=== PATIENT | female | born 1955 | race Caucasian/White ===

== ENCOUNTER 2022-11-06 11:53 | Outpatient (REF) | payer MEDICARE, SELFPAY ==
[2022-11-06 13:14] LABS: MANUAL DIFF FLAG NO
[2022-11-06 13:27] LABS: Basophils Absolute Auto 0.1 X10*3/uL (0.0-0.2); Basophils Percent Auto 0.6 % (0-2); Eosinophils Absolute Auto 0.3 X10*3/uL (0.0-0.4); Eosinophils Percent Auto 3.1 % (0-4); Hematocrit 36.7 % (37.0-47.0); Imm Gran Abs Auto 0.04 X10*3/uL (0.00-0.03); Imm Gran Pct Auto 0.5 % (0.0-0.4); Lymphocytes Absolute Auto 2.3 X10*3/uL (1.2-4.9); Lymphocytes Percent Auto 27.5 % (20-40); Mean Corpuscular HGB Conc 32.7 g/dl (31.0-35.0); Mean Corpuscular Hemoglobin 30.9 pg (27.0-33.0); Mean Corpuscular Volume 94.6 fL (80.0-98.0); Mean Platelet Volume 11.1 fL (9.4-12.3); Monocytes Absolute Auto 0.4 X10*3/uL (0.1-1.2); Monocytes Percent Auto 5.3 % (2-11); Neutrophils Absolute Auto 5.3 x10*3/uL (2.0-8.3); Platelet Count 206 X10*3/uL (160-400); Red Blood Count 3.88 X10*6/uL (4.20-5.50); Red Cell Distribution Width 13.5 % (11.0-16.0); White Blood Count 8.4 X10*3/uL (4.8-10.8)
[2022-11-06 14:02] LABS: Anion Gap 14 (12-20); Blood Urea Nitrogen 20 mg/dL (9-16); Calcium 9.3 mg/dL (8.4-10.2); Carbon Dioxide 27 mmol/L (22-29); Chloride 105 mmol/L (96-108); Estimated Glomerular Filt Rate 53; Glucose Random 187 mg/dL (60-115); Potassium 2.9 mmol/L (3.3-5.1); Sodium 143 mmol/L (135-145); Uric Acid 8.9 mg/dL (2.4-5.7)
[2022-11-06 14:17] LABS: TSH reflex Free T4 1.52 uIU/mL (0.32-4.0)
[2022-11-06 14:40] LABS: Rheumatoid Factor < 13.0 IU/mL (<15.0)
== END 2022-11-06 11:54 | disposition home or self-care (01) ==
LOC: HO.HHCL 11:53
PROVIDERS: Visit Provider Internal Medicine
DX: E03.9 Hypothyroidism, unspecified (principal); I10 Essential (primary) hypertension; M79.641 Pain in right hand; M79.672 Pain in left foot
CPT/HCPCS: 36415; 80048; 84443; 84550; 85025; 86431

== ENCOUNTER 2022-11-08 11:23 | Outpatient (AMB) | payer MEDICARE, MEDICAID, SELFPAY ==
--- NOTE | 2022-11-08 11:29 | MHC.OFFWIV ---
Intake Vital Signs 11/08/22 11:32 Weight 79.832 kg BP 118/78 Blood Pressure Location Rt brachial Position Sitting Pulse 78 Pulse Source Pulse Oximeter Temp 98.4 F Temp Source Oral Pulse Oximetry (%) 95 Oxygen Delivery Method Room Air Intake Visit Reasons: EST/low potassium? Intake Note: PT states she's having low potassium. Blood test was done on that revealed the low potassium. Allergies amlodipine Allergy (Unknown, Verified 06/03/18 00:00) hydrochlorothiazide Allergy (Unknown, Verified 06/03/18 00:00) verapamil Allergy (Unknown, Verified 06/03/18 00:00) No Known Allergies Allergy (Unverified 11/17/19 14:46) HPI HPI Comments History of Present Illness Details 1144 67-year-old female presents for a repeat potassium check, patient had labs done on 11/06/2022 her potassium was 2.9, she was prescribed 20 medical equivalents of potassium chloride by mouth twice a day been taking them since then, PCP advised for repeat labs today. Patient denies any medical complaints at this time. No chest pain or shortness of breath. Physical exam benign. Plan repeat potassium will call patient with result. She still has a few doses of Klor-Con left Educated patient on diagnosis and treatment plan, answered all question, patient verbalizes understanding. At this time patient will be discharged home, advised to return with new or worsening symptoms. Educated on worrisome signs and symptoms and when to return. At this time I feel comfortable discharge home. Review of Systems Const Details: Constitutional : No Weight loss, No Fever, No Chills, No Fatigue, No Malaise ENT/Mouth : No sore throat, No Rhinorrhea Eyes: No Eye Pain, No Swelling, No Redness Cardiovascular : No Chest Pain, No SOB, No Dyspnea on Exertion, No Orthopnea, No Edema, No Palpitations Respiratory : No Cough, No Sputum, No Wheezing Gastrointestinal : No Nausea, No Vomiting, No Diarrhea, No Constipation, No abdominal Pain, No Hematochezia, No Melena Genitourinary : No Dysuria, No Urinary Frequency, No Hematuria, Musculoskeletal : No joint pain, No Myalgias, No Joint Swelling Skin : No Skin Lesions, No rash Neuro : No Weakness, No Numbness, No Dizziness, No Headache Psych : No Anxiety/Panic, No Depression All other systems reviewed and are negative All systems reviewed & are unremarkable except as noted in HPI and below Physical Exam Vital Signs: Last Vital Signs Temp 98.4 F 11/08/22 11:32 Pulse 78 11/08/22 11:32 BP 118/78 11/08/22 11:32 Pulse Ox 95 11/08/22 11:32 Oxygen Delivery Method Room Air 11/08/22 11:32 vss Appearance: Alert.? Oriented X3.? No acute distress.? Head: Normocephalic, atraumatic, no step-offs or deformities Eyes: Pupils equal, round and reactive to light.? CVS: Normal heart rate and rhythm.? Pulses normal.? Respiratory: No respiratory distress.? Breath sounds normal.? Skin: Skin warm and dry.? Normal skin color.? Normal skin turgor.? Extremities: No lower extremity edema.? No calf ttp. 5/5 strength to bilateral upper and lower extremities Neuro: Oriented X 3.? No motor deficit.? No sensory deficit. CN 2-12 intact Assessment & Plan Assessment & Plan (1) Hypokalemia: Code(s): E87.6 - Hypokalemia Plan Take your medications as prescribed. If you were prescribed antibiotics today, it is important that you take your medication to their entirety, do not skip any doses, do not finish them early. Follow-up with your primary care provider this week. Return to the emergency department with new or worsening symptoms. Such as fevers, chills, chest pain, shortness of breath, nausea, vomiting, dizziness, headache, vision changes, lethargy In case of emergency call 911 Orders: Orders Complete Blood Count Auto Diff Today E87.6 - Hypokalemia Comprehensive Met. Panel Today E87.6 - Hypokalemia Coding Level of Care Code Est Pt Level 3 (07989) Diagnoses Hypokalemia E87.6
[2022-11-08 11:32] VITALS: BP 118/78; PULSE 78; TEMP 36.9; O2SAT 95
== END 2022-11-08 12:09 | disposition home or self-care (01) ==
PROVIDERS: PCP Internal Medicine; Visit Provider Physician Assistant
DX: E87.6 Hypokalemia (principal)
CPT/HCPCS: 99213

== ENCOUNTER 2022-11-08 11:46 | Outpatient (REF) | payer MEDICARE, MEDICAID, SELFPAY ==
[2022-11-08 13:24] LABS: MANUAL DIFF FLAG NO
[2022-11-08 13:33] LABS: Basophils Percent Auto 0.4 % (0-2); Eosinophils Absolute Auto 0.3 X10*3/uL (0.0-0.4); Eosinophils Percent Auto 3.5 % (0-4); Hematocrit 37.1 % (37.0-47.0); Hemoglobin 12.1 g/dl (12.0-16.0); Imm Gran Abs Auto 0.02 X10*3/uL (0.00-0.03); Imm Gran Pct Auto 0.3 % (0.0-0.4); Lymphocytes Absolute Auto 2.5 X10*3/uL (1.2-4.9); Lymphocytes Percent Auto 31.8 % (20-40); Mean Corpuscular HGB Conc 32.6 g/dl (31.0-35.0); Mean Corpuscular Volume 95.1 fL (80.0-98.0); Mean Platelet Volume 11.2 fL (9.4-12.3); Monocytes Absolute Auto 0.4 X10*3/uL (0.1-1.2); Monocytes Percent Auto 5.5 % (2-11); Neutrophils Absolute Auto 4.6 x10*3/uL (2.0-8.3); Neutrophils Percent Auto 58.5 % (45-73); Platelet Count 209 X10*3/uL (160-400); Red Cell Distribution Width 13.6 % (11.0-16.0); White Blood Count 7.8 X10*3/uL (4.8-10.8)
[2022-11-08 13:42] LABS: Alanine Aminotransferase 42 U/L (0-31); Alkaline Phosphatase 177 U/L (39-117); Anion Gap 14 (12-20); Aspartate Amino Transferase 30 U/L (5-31); Bilirubin Total 0.3 mg/dL (0.0-1.0); Blood Urea Nitrogen 22 mg/dL (9-16); Calcium 9.4 mg/dL (8.4-10.2); Carbon Dioxide 26 mmol/L (22-29); Chloride 105 mmol/L (96-108); Estimated Glomerular Filt Rate 42; Glucose Random 146 mg/dL (60-115); Potassium 3.3 mmol/L (3.3-5.1); Sodium 142 mmol/L (135-145); Total Protein 7.5 g/dL (6.5-8.0)
== END 2022-11-08 11:47 | disposition home or self-care (01) ==
LOC: HO.HMGCLDS 11:46
PROVIDERS: PCP Internal Medicine; Visit Provider Physician Assistant
DX: E87.6 Hypokalemia (principal)
CPT/HCPCS: 36415; 80053; 85025

== ENCOUNTER 2022-11-10 13:39 | Outpatient (REF) | payer MEDICARE, MEDICAID, SELFPAY ==
--- NOTE | ~2022-11-10 | XR_ITS ---
EXAMINATION: XR HAND, RIGHT CLINICAL INFORMATION: Right hand pain. COMPARISON: 12/22/2006. TECHNIQUE: PA, lateral, and oblique views of the right hand. FINDINGS: Multiple screws are again seen within the right ring finger proximal phalanx. Hardware appears intact. No acute fractures are identified. [id number]-[id number] multifocal osteoarthritis is evident in the interphalangeal joints, characterized by joint space narrowing and marginal osteophytes. Additional mild osteoarthritis is evident in the 1st CMC, triscaphe, and 1st MCP joints. There is chondrocalcinosis at the TFCC. No erosions. Soft tissues are unremarkable aside from calcific atherosclerosis in the distal radius. XR/XR hand RT min 3V IMPRESSION: Nwll-[id number]-[id number] multifocal osteoarthritis in the right hand, most notably in the interphalangeal joints. No acute osseous findings.
--- NOTE | ~2022-11-10 | XR_ITS ---
EXAMINATION: XR FOOT, LEFT CLINICAL INFORMATION: Left foot pain. COMPARISON: None available. TECHNIQUE: AP, lateral, and oblique views of the left foot. FINDINGS: There is nonuniform joint space narrowing in the interphalangeal joints with marginal osteophytes, most pronounced in the distal interphalangeal joints of the 2nd and 3rd toes. Metatarsophalangeal joints and midfoot joints appear well preserved. Small enthesopathic spurs are present at the Achilles tendon insertion and plantar fascial origin on the calcaneus. No erosions. No fractures. Calcific atherosclerosis at the ankle and foot. Mild generalized soft tissue swelling. XR/XR foot LT min 3V IMPRESSION: Sllw-ti-[id number] osteoarthritis in the interphalangeal joints, most pronounced in the 2nd and 3rd toes. Mild soft tissue swelling. No acute osseous findings.
== END 2022-11-10 13:40 | disposition home or self-care (01) ==
LOC: HO.HHCX 13:39
PROVIDERS: Visit Provider Internal Medicine
DX: M79.672 Pain in left foot (principal); M79.641 Pain in right hand
CPT/HCPCS: 73130; 73630

== ENCOUNTER 2023-05-26 12:15 | Outpatient (REF) | payer MEDICARE, MEDICAID, SELFPAY ==
[2023-05-26 13:57] LABS: Anion Gap 14 (12-20); Blood Urea Nitrogen 20 mg/dL (9-16); Calcium 9.3 mg/dL (8.4-10.2); Carbon Dioxide 27 mmol/L (22-29); Chloride 106 mmol/L (96-108); Estimated Glomerular Filt Rate 55; Glucose Random 120 mg/dL (60-115); Potassium 3.3 mmol/L (3.3-5.1); Sodium 144 mmol/L (135-145)
== END 2023-05-26 12:16 | disposition home or self-care (01) ==
LOC: HO.HHCL 12:15
PROVIDERS: Visit Provider Internal Medicine
DX: I10 Essential (primary) hypertension (principal)
CPT/HCPCS: 36415; 80048

== ENCOUNTER 2023-07-14 15:22 | Outpatient (REF) | payer MEDICARE, MEDICAID, SELFPAY ==
[2023-07-14 18:48] LABS: Anion Gap 16 (12-20); Blood Urea Nitrogen 21 mg/dL (9-16); Calcium 9.2 mg/dL (8.4-10.2); Carbon Dioxide 22 mmol/L (22-29); Chloride 109 mmol/L (96-108); Estimated Glomerular Filt Rate 43; Glucose Random 158 mg/dL (60-115); Potassium 3.6 mmol/L (3.3-5.1); Sodium 143 mmol/L (135-145)
[2023-07-14 19:35] LABS: Magnesium 1.3 mg/dL (1.6-2.6)
== END 2023-07-14 15:23 | disposition home or self-care (01) ==
LOC: HO.HHCL 15:22
PROVIDERS: Visit Provider Internal Medicine Geriatric Medicine
DX: R42 Dizziness and giddiness (principal); E87.6 Hypokalemia; E83.42 Hypomagnesemia
CPT/HCPCS: 36415; 80048; 83735

== ENCOUNTER 2023-07-24 16:10 | Outpatient (REF) | payer MEDICARE, MEDICAID, SELFPAY ==
[2023-07-24 18:03] LABS: Magnesium 1.6 mg/dL (1.6-2.6)
== END 2023-07-24 16:11 | disposition home or self-care (01) ==
LOC: HO.LAB 16:10
PROVIDERS: PCP Internal Medicine; Visit Provider Internal Medicine Geriatric Medicine
DX: E83.42 Hypomagnesemia (principal)
CPT/HCPCS: 36415; 83735

== ENCOUNTER 2024-07-12 10:49 | Outpatient (REF) | payer OTHER, SELFPAY ==
[2024-07-12 11:28] LABS: MANUAL DIFF FLAG NO
[2024-07-12 11:36] LABS: Basophils Percent Auto 0.2 % (0-2); Eosinophils Percent Auto 0.3 % (0-4); Hematocrit 38.4 % (37.0-47.0); Hemoglobin 12.2 g/dl (12.0-16.0); Imm Gran Abs Auto 0.16 X10*3/uL (0.00-0.03); Imm Gran Pct Auto 1.5 % (0.0-0.4); Lymphocytes Absolute Auto 1.7 X10*3/uL (1.2-4.9); Lymphocytes Percent Auto 15.7 % (20-40); Mean Corpuscular HGB Conc 31.8 g/dl (31.0-35.0); Mean Corpuscular Hemoglobin 30.6 pg (27.0-33.0); Mean Corpuscular Volume 96.2 fL (80.0-98.0); Mean Platelet Volume 10.6 fL (9.4-12.3); Monocytes Absolute Auto 0.3 X10*3/uL (0.1-1.2); Monocytes Percent Auto 3.1 % (2-11); Neutrophils Absolute Auto 8.5 x10*3/uL (2.0-8.3); Neutrophils Percent Auto 79.2 % (45-73); Platelet Count 234 X10*3/uL (160-400); Red Blood Count 3.99 X10*6/uL (4.20-5.50); Red Cell Distribution Width 13.7 % (11.0-16.0); White Blood Count 10.8 X10*3/uL (4.8-10.8)
--- OUTSIDE RECORDS SUMMARY | 2024-07-12 12:14 | XMS_ITS | Encounter Summary ---
Author Organization [employer] Address [address] [facility] [address] [place] [address] Care Team Providers Care Fisher Eel Name Role Phone Jossue Bravo MD Primary Care Provide r Encounter Details Date Type Department Care Team ([facility] st Contact Info) Description 12/22/2023 Orders Only [facility] [address] [place] [address] Provider, MD Juan Social History Tobacco Use Types Packs/Day Years Used Date Smoking Tobacco: Never Smokeless Tobacco: Never Alcohol Use Standard Drinks/Week Comments Never 0 (1 standard drink = 0.6 oz pur e alcohol) Alcohol Answer Date Recorded Frequency of Alcohol Consumption Not on file 12/03/2023 Average Number of Drinks Not on file 024 Frequency of Binge Drinking Not on file 05/2023 Score 0 12/03/2023 Depression Answer Date Recorded Patient Health Questionnaire-9 Score 3 08/25/2023 Patient Health Questionnaire-9 Score 3 08/25/2023 Last PHQ-9: Questionnaire Data Not on file 0 08/25/2023 Housing Stability Answer Date Recorded What is your housing situation today? I have luis alberto abarca 12/15/[address] you li ve. Do you have problems with any of the following? None of the above 12/15/2022 Food Insecurity Answer Date Recorded Within the past 12 months, y ou worried that your food would run out before you got money to buy more: Sometimes True 2023 Within the past 12 months,th e food you bought just didn't last and you didn't have enough money to get more: Sometimes True 06/08/2023 Transportation Answer Date Recorded In the past 12 months, has l ack of transportation kept you from medical appts, meetings, work or from getting things needed for daily living? No 12/15/2022 Utilities Answer Date Recorded In the past 12 months, has t he electric, gas, oil or water company threatened to shut off services in your home? No 12/15/2022 Depression Answer Date Recorded Patient Health Questionnaire-2 Score 1 08/25/2023 Comments Unknown Sex and Gender Information Value Date Recorded Sex Assigned at Female 12/30/2021 10:14 AM EDT Legal Sex Female 10:14 AM EDT Gender Identity Female 12/30/2021 10:14 AM EDT Sexual Orientation Straight 12/30/2021 10 :14 AM EDT documented as of this encounter Plan of Treatment Upcoming Encounters Date Type Department Care Team (Late st Contact Info) Description 09/13/2024 1:00 PM EDT Office Visit [facility] [address] [place] [address] Jossue Bravo MD [address] [place] [address] documented as of this encounter Procedures Procedure Name Priority Date/Time Associated Diagnosis Comments MAMMOGRAPHY Routine 12/10/2023 10:29 AM EDT documented in this encounter Results * Hm Mammography (12/10/2023 10:29 AM EDT) Anatomical Region Laterality Modality Other Historical Provider HEALTH MAINTENANCE Final Result documented in this encounter Visit Diagnoses Not on filedocumented in this encounter Additional Health Concerns Assessment Noted Time PHQ-9 Depression Total Score: 3 08/25/19 24 11:39 AM EDT documented as of this encounter Care Teams Fisher Eel Relationship Specialty Start Date End Date Jossue Bravo MD [address] [place] [address] PCP - General Internal Medicine 07/07/16 [facility] 04/10/20 documented as of this encounter
--- OUTSIDE RECORDS SUMMARY | 2024-07-12 12:14 | XMS_ITS | Encounter Summary ---
Author Organization [employer] Address [address] [place] [address] [address] [place] [address] Care Team Providers Care Belt Lacer Name Role Phone Jossue Bravo MD Primary Care Provide r Reason for Visit * Reason Comments Med Refill Encounter Details Date Type Department Care Team (Late Contact Info) Description 06/26/2022 Refill [facility] [address] [place] [address] Jossue Bravo MD [address] [place] [address] [phone] Low back pain, unspecified back pain laterality, unspecified chronicity, unspecified whether sciatica present Social History Tobacco Use Types Packs/Day Years Used Date Smoking Tobacco: Never Assessed Comments Unknown Sex and Gender Information Value Date Recorded Sex Assigned at Female 12/30/2021 10:14 AM EDT Legal Sex Female 10:14 AM EDT Gender Identity Female 12/30/2021 10:14 AM EDT Sexual Orientation Straight 12/30/2021 10 :14 AM EDT documented as of this encounter Plan of Treatment Upcoming Encounters Date Type Department Care Team ([facility] Contact Info) Description 09/13/2024 1:00 PM EDT Office Visit [facility] [address] [place] [phone] Jossue Bravo MD [address] [place] [address] [phone] documented as of this encounter Visit Diagnoses Diagnosis Low back pain, unspecified back pain laterality, unspecified chronicity, unspecified whether sciatica present documented in this encounter Care Teams Belt Lacer Relationship Specialty Start Date End Date Jossue Bravo MD [address] [place] [phone] PCP - General Internal Medicine 07/07/16 [facility] 04/10/20 documented as of this encounter
--- OUTSIDE RECORDS SUMMARY | 2024-07-12 12:14 | XMS_ITS | Encounter Summary ---
Author Organization [employer] Address [address] [facility] [address] [place] [address] Care Team Providers Care Athletic Coach Name Role Phone Jossue Bravo MD Primary Care Provide r Reason for Visit * Reason Comments Med Refill Encounter Details Date Type Department Care Team ([facility] st Contact Info) Description 12/29/2022 Refill [facility] [address] [place], [place] [phone] Jossue Bravo MD [address] [place], [place] [phone] Mixed hyperlipidemia Social History Tobacco Use Types Packs/Day Years Used Date Smoking Tobacco: Never Smokeless Tobacco: Never Depression Answer Date Recorded Patient Health Questionnaire-9 Score 0 08/05/2022 Housing Stability Answer Date Recorded What is your housing situation today? I have luis albertorenae abarca 12/15/[address] you li ve. Do you have problems with any of the following? None of the above 12/15/2022 Food Insecurity Answer Date Recorded Within the past 12 months, y ou worried that your food would run out before you got money to buy more: Never True 12/15/2022 Within the past 12 months,th e food you bought just didn't last and you didn't have enough money to get more: Never True Transportation Answer Date Recorded In the past [...] Answer Date Recorded Patient Health Questionnaire-2 Score 0 08/05/2022 Comments Unknown Sex and Gender Information Value [...] 1:00 PM EDT Office Visit [facility] [address] [place] [address] Jossue Bravo MD [address] [place] [address] documented as of this encounter Visit Diagnoses Diagnosis Mixed hyperlipidemia documented in this encounter Additional Health Concerns Assessment Noted Time PHQ-9 Depression Total Score: 0 08/06/19 23 9:30 AM EDT documented as of this encounter Care Teams Athletic Coach Relationship Specialty Start Date End Date Jsosue Bravo MD [address] [place] [address] PCP - General Internal Medicine 07/07/16 [facility] 04/10/20 documented as of this encounter
--- OUTSIDE RECORDS SUMMARY | 2024-07-12 12:14 | XMS_ITS | Clinical Summary ---
Author Organization [employer] Address [address] [place] [address] [address] [place] [address] Care Team Providers Care Orthopaedic Nurse Name Role Phone Jossue Bravo MD Primary Care Provide r Allergies Active Allergy Reactions Criticality Noted Date Comments Amlodipine Dizziness 04/02/2010 Hydrochlorothiazide-Triam terene 01/01/2023 Verapamil 04/02/2010 Other reaction(s): constipation Medications polyethylene glycol, PEG, 3350 (Miralax) 17 g packet take 1 packet by oral route every day mixed with 8 oz. water, juice, soda, coffee or tea as needed for Constipation 30 packet 1 023 Active albuterol (2.5 MG/3ML) 0.083% nebulizer solution INHALE THE CONTENT OF 1 VIAL (3mls) VIA NEBULIZER EVERY 4 TO 6 HOURS NEEDED FOR SHORTNESS OF BREATH OR FOR WHEEZING 023 Active albuterol (Ventolin HFA) 108 (90 Base) MCG/ACT inhalerIndication s:Heartburn INHALE 2 PUFF BY MOUTH EVERY 4 TO 6 HOURS NEEDED 18 g 023 Active Blood Glucose Monitoring Suppl (FreeStyle Lite) deviceIndications :Type 2 diabetes mellitus without complication, without long-term current use of insulin ([facility]) Inject 1 each under the skin 2 times daily. 1 each 024 Active Advair HFA 230-21 MCG/ACT inhaler INHALE 2 PUFF BY MOUTH two (2) times a day. rinse mouth and throat after use 024 Active furosemide (Lasix) 20 MG tablet Take 20 mg by mouth Once per day. Active meclizine (Antivert) 25 MG tablet Take 1 tablet by mouth if needed in the morning, at noon, and at bedtime for dizziness. 024 Active Blood Pressure kit Use twice a day 1 kit Active docusate sodium (Colace) 100 MG capsuleIndication s:Constipation, unspecified constipation type TAKE 1 CAPSULE BY MOUTH two (2) times a day 180 capsule 3 024 Active OXcarbazepine (Trileptal) 600 MG tabletIndications :Partial symptomatic epilepsy with complex partial seizures, not intractable, without status epilepticus ([facility]) TAKE 1 TABLET BY MOUTH two (2) times a day 60 tablet 11 024 Active FreeStyle lancetsIndication s:Type 2 diabetes mellitus without complications ([facility]) USE TO TEST FINGER STICK BLOOD SUGAR two (2) times a day 100 each 3 024 Active losartan (Cozaar) 100 MG tablet Take 1 tablet (100 mg) by mouth Once per day. 90 tablet 3 024 Active montelukast (Singulair) 10 MG tablet TAKE 1 TABLET BY MOUTH EVERY EVENING 30 tablet 11 024 Active levothyroxine (Synthroid, Levoxyl) 112 MCG tablet TAKE 1 TABLET BY MOUTH ONCE DAILY 30 tablet 11 024 Active metFORMIN XR (Glucophage-XR) 500 MG 24 hr tabletIndications :Type 2 diabetes mellitus without complication, unspecified whether truck terminal manager insulin use ([facility]) TAKE 1 TABLET BY MOUTH EVERY EVENING WITH DINNER 90 tablet 3 024 Active omeprazole (PriLOSEC) [address] capsule TAKE 1 CAPSULE BY MOUTH ONCE DAILY IN THE MORNING. 90 capsule 3 024 Active nystatin (Nyamyc) 078419 UNIT/GM powderIndications :Tinea corporis APPLY TO THE AFFECTED AREA TOPICALLY two (2) times a day 60 g 6 025 Active Aspirin Low Dose 81 MG EC tablet TAKE 1 TABLET BY MOUTH ONCE DAILY 90 tablet 6 025 Active cholecalciferol VITAMIN D (Vitamin D-3) 50 MCG (2000 UT) tablet TAKE 1 TABLET BY MOUTH ONCE DAILY 90 tablet 2 025 Active Acetaminophen Extra Strength 500 MG tabletIndications :Low back pain, unspecified back pain laterality, unspecified chronicity, unspecified whether sciatica present TAKE 1 TABLET BY MOUTH EVERY 8 HOURS NEEDED 60 tablet 3 025 Active atorvastatin (Lipitor) 40 MG tabletIndications :Mixed hyperlipidemia TAKE 1 TABLET BY MOUTH ONCE DAILY AT BEDTIME 30 tablet 11 025 Active loratadine (Claritin) 10 MG tabletIndications :Seasonal allergies TAKE 1 TABLET BY MOUTH ONCE DAILY IN THE MORNING 90 tablet 1 025 Active Diclofenac Sodium 1 % gelIndications:Ch ronic right shoulder pain Apply to affected area bid prn 100 g 1 025 Active glucose blood (FREESTYLE LITE) test stripIndications: Type 2 diabetes mellitus without complications (CMS/HCC) USE TO TEST FINGER STICK BLOOD SUGAR two (2) times a day DIRECTED 50 strip 11 Active Alcohol Swabs (Alcohol Pads) 70 % pads USE TO TEST FINGER STICK BLOOD SUGAR two (2) times a day 100 each Active ipratropium (Atrovent) 0.02 % nebulizer solution Active predniSONE (Deltasone) 20 MG tablet 025 2024 Active Umeclidinium Cameron 62.5 MCG/ACT aerosol powder Inhale 0.0625 mg in the morning. 1 INHALATION EVERY DAY IN AM 023 2024 Discontinued(M ed list cleanup (will not trigger notification to Pharmacy)) benzonatate (Tessalon) 100 MG capsule TAKE 1 CAPSULE BY MOUTH EVERY 8 HOURS NEEDED FOR COUGH 023 2024 Discontinued(M ed list cleanup (will not trigger notification to Pharmacy)) omeprazole (PriLOSEC) [address] capsuleIndication s:Heartburn TAKE 1 CAPSULE BY MOUTH one time a day 30 capsule 6 023 2024 Discontinued(M ed list cleanup (will not trigger notification to Pharmacy)) potassium chloride CR (Klor-Con M10) 10 MEQ ER tablet Take 1 tablet (10 mEq) by mouth Once per day. Do not crush or chew. 30 tablet 024 2024 Alcohol Swabs (Alcohol Pads) 70 % pads USE TO TEST FINGER STICK BLOOD SUGAR two (2) times a day 100 each 3 024 2024 Discontinued glucose blood (FREESTYLE LITE) test stripIndications: Type 2 diabetes mellitus without complications ([facility]) USE TO TEST BLOOD SUGAR TWICE A DAY DIRECTED 50 strip 3 024 2024 Discontinued Diclofenac Sodium 1 % gelIndications:Ch ronic right shoulder pain Apply to affected area bid prn 50 g 1 025 2024 Discontinued(R eorder (will not trigger notification to Pharmacy)) Active Problems Problem Noted Date Diagnosed Date Primary hyperparathyroidism 04/14/2024 Assessment & Plan (04/14/2024 11:59 AM EST): Under the care of nephrology, last seen 07/2023 Stage 3b chronic kidney disease 04/14/2024 Assessment & Plan (04/14/2024 11:59 AM EST): Under the care of Nephrology Dr. Ta last seen 07/2023 Hospital discharge follow-up 03/08/2024 Assessment & Plan (07/12/2024 10:33 AM EDT): Pt here for a HDF Initially admitted to [facility] 07/06-/07/07/2024 After she presented with SOB, chest tightness, productive cough with green + yellow sputum. Patient found with hypokalemia (3.3 mmol/L) and tested positive for human rhinovirus/enterovirus. Patient treated with PO potassium and systemic steroids with bronchodilators for asthma exacerbation triggered by rhinovirus. Patient was discharged with 5 day course of steroids and instructions to continue chronic medications. Most recently she was readmitted to [facility] from 07/09/07/11/2024 for persistent shortness of breath or productive cough. It was discovered patient was not able to hot die picker prednisone prescription upon discharge from [facility] for completion of steroid course as outpatient. Asthma exacerbation was treated with a course of azithromycin, bronchodilators, and systemic steroids. Patient was discharged with instructions to take 2 more days of prednisone to total a 5 day course. Assessment & Plan (03/08/2024 9:46 AM EST): Pt here for a HDF Admitted to [facility] from: 12/14/2023-12/15/2023 Patient presented with neck and back pain secondary to a fall. Head CT revealed focus of hyperdensity along left lateral ventricle, which was possibly artifactual, however intraparenchymal hemorrhage could not be ruled out. Spinal x-ray without acute abnormality. Patient without focal neurological deficit. Patient administered oxycodone for pain with good affect. Trauma and neurosurgery teams consulted and recommended to hold aspirin until repeat outpatient head CT in 1 month. Follow up head CT on 01/2924: No findings concerning for hemorrhage. Patient reported that she had an appointment with the [facility] neurologist at the end of January, and they advised the patient to continue taking aspirin daily. 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 Mild soft tissue swelling. No acute osseous findings. Assessment & Plan (11/06/2022 11:36 AM EDT): New onset, 3 months no injury. Mainly over the 2nd MTC joint. No redness, no swelling Etiology ? OA ? 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 Mild soft tissue swelling. No acute osseous findings. Assessment & Plan (11/06/2022 11:37 AM EDT): New onset of pain over her left 2nd toe in the absence of any injury. 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 Overdue referred back, pt never went. Today she has been referred back. Pt promised to go this time Assessment & Plan (05/26/2023 11:50 AM EDT): Mammogram: NL 12/08/2022 Pap Smear: 07/02/2018 with Stephanie hartley Colonoscopy: [address] Villa HERNANDEZ/ Repeat 11/2016 showed Tubular adenomas, needed a repeat in 4 years 2020. Overdue referred back today Assessment & Plan (08/05/2022 9:41 AM EDT): Mammogram: NL 12/06/2021 Pap Smear: 07/02/2018 with Stephanie hartley Colonoscopy: [address] Villa HERNANDEZ/ Repeat 11/2016 showed Tubular adenomas, needed a repeat in 4 years 2020. Overdue referred back today Umbilical hernia without obstruction and without gangrene 08/05/2022 Assessment & Plan (08/05/2022 9:34 AM EDT): Pt here with c/o dicomfort on her previously diagnosed umbilical wall hernia. Pt interested in surgical correction would like to be referred for evaluation with a surgeon Plan: will refer to Dr Benjamin Of note most recent Abdominal CT 06/24/2020 showed: Impression: 1. ??Small fat-containing umbilical hernia similar. Mild constipation with possible stool impaction in the distal sigmoid colon and rectum. Gastroesophageal reflux disease without esophagi tis 08/05/2022 Overview (08/05/2022): EGD 01/17/2021 done at [facility] showed mild gastritis neg H pilory Chronic right shoulder pain 08/05/2022 Assessment & Plan (08/05/2022 12:22 PM EDT): Pt with previous c/o acute on chronic right shoulder pain. she has a Hx of an old displaced and impacted glenoid fracture with concomitant AC joint separation. Pt was referred to Orthopaedics for consideration of conservative measures She had a steroid injection with good results Today not complaining Chronic heart failure with preserved ejection fr action 07/17/2022 Assessment & Plan (04/14/2024 11:58 AM EST): Pt was seen by Construction Teacher 11/2023 They ordered a repeat ECHO . She is off lasix per account executive recomendation Assessment & Plan (12/03/2023 11:47 AM EDT): Pt was seen by Construction Teacher 11/2023 They ordered a repeat ECHO and recommended to stay on lasix 20 mg po daily Assessment & Plan (05/26/2023 11:53 AM EDT): Pt was seen by Construction Teacher Dr Nazario Assessment & Plan (08/05/2022 12:20 PM EDT): Pt was seen by Construction Teacher Dr Nazario 10/15/2021 Otosclerosis 06/22/2018 Moderate persistent asthma without complication 04/21/2017 Assessment & Plan (07/12/2024 10:27 AM EDT): Pt followed by [facility] Dr Aleksandr Mann, last seen 05/2024 Recommended she stayed on Advair, Montelukast and Albuterol PRN Assessment & Plan (08/05/2022 8:43 AM EDT): Pt followed by [facility] Dr Aleksandr Mann On Advair and Albuterol PRN Tubular adenoma of colon 01/15/2017 Assessment & Plan (08/05/2022 9:40 AM EDT): Last colonoscopy 2016, overdue for repeat will refer back today Essential hypertension 12/12/2014 Assessment & Plan (07/12/2024 10:34 AM EDT): Patient here for a f/u BP remains controlled She is on a regimen of: Losartan 100 mg po daily Orthotic Finish Grinding Technician recommended to discontinue lasix (prescribed by Cardiology) Of note She does not want to take Ca channel blockers due to side effects of constipation and dizziness and her Heart rate is borderline to tolerate a beta devora Plan: Continue current regimen patient advised to adhere to a low sodium diet, encouraged about medication compliance, counseled about weight loss. BMP Lab Results Component Value Date NA 143 07/14/2023 NA 144 05/26/2023 K 3.6 07/14/2023 K 3.3 05/26/2023 CL 109 (H) 07/14/2023 CL 106 05/26/2023 BUN 21 (H) 07/14/2023 BUN 20 (H) 05/26/2023 CREATININE 1.24 07/14/2023 CREATININE 1.00 05/26/2023 Normal, will repeat BMP Assessment & Plan (04/14/2024 11:55 AM EST): Patient here for a f/u BP remains controlled She is on a regimen of: Losartan 100 mg po daily Orthotic Finish Grinding Technician recommended to discontinue lasix (prescribed by Cardiology) Of note She does not want to take Ca channel blockers due to side effects of constipation and dizziness and her Heart rate is borderline to tolerate a beta devora Plan: Continue current regimen patient advised to adhere to a low sodium diet, encouraged about medication compliance, counseled about weight loss. BMP Lab Results Component Value Date NA 143 07/14/2023 NA 144 05/26/2023 K 3.6 07/14/2023 K 3.3 05/26/2023 CL 109 (H) 07/14/2023 CL 106 05/26/2023 BUN 21 (H) 07/14/2023 BUN 20 (H) 05/26/2023 CREATININE 1.24 07/14/2023 CREATININE 1.00 05/26/2023 normal Assessment & Plan (12/03/2023 11:48 AM EDT): Patient here for a f/u BP remains controlled She is on a regimen of: Losartan 100 mg po daily Orthotic Finish Grinding Technician recommended to discontinue lasix (prescribed by Cardiology) Of note She does not want to take Ca channel blockers due to side effects of constipation and dizziness and her Heart rate is borderline to tolerate a beta devora Plan: Continue current regimen patient advised to adhere to a low sodium diet, encouraged about medication compliance, counseled about weight loss. BMP 07/14/2023 normal Assessment & Plan (08/25/2023 11:39 AM EDT): Patient here for a f/u BP remains controlled She is on a regimen of: Losartan 100 mg po daily Orthotic Finish Grinding Technician recommended to discontinue lasix (prescribed by Cardiology) Of note She does not want to take Ca channel blockers due to side effects of constipation and dizziness and her Heart rate is borderline to tolerate a beta devora Plan: Continue current regimen patient advised to adhere to a low sodium diet, encouraged about medication compliance, counseled about weight loss. BMP 07/14/2023 normal Assessment & Plan (05/26/2023 11:54 AM EDT): Patient here for a f/u BP remains controlled She is on a regimen of: Losartan 100 mg po daily Orthotic Finish Grinding Technician recommended to discontinue lasix (prescribed by Cardiology) Of note She does not want to take Ca channel blockers due to side effects of constipation and dizziness and her Heart rate is borderline to tolerate a beta devora Plan: Continue current regimen patient advised to adhere to a low sodium diet, encouraged about medication compliance, counseled about weight loss. BMP 11/08/2022 normal will repeat Assessment & Plan (11/06/2022 11:29 AM EDT): Patient here for a f/u BP remains controlled She is on a regimen of: Losartan 100 mg po daily and Lasix 20 mg po daily Of note She does not want to take Ca channel blockers due to side effects of constipation and dizziness and her Heart rate is borderline to tolerate a beta devora Plan: Continue current regimen patient advised to adhere to a low sodium diet, encouraged about medication compliance, counseled about weight loss. BMP 08/05/2022 normal slightly low k 3.4 will repeat Assessment & Plan (08/05/2022 8:45 AM EDT): Patient here for a f/u BP remains controlled She is on a regimen of: Losartan 100 mg po daily and Lasix 20 mg po daily Of note She does not want to take Ca channel blockers due to side effects of constipation and dizziness and her Heart rate is borderline to tolerate a beta devora Plan: Continue current regimen patient advised to adhere to a low sodium diet, encouraged about medication compliance, counseled about weight loss. [facility] will order today Mixed hyperlipidemia 12/12/2014 Alkaline phosphatase raised 11/10/2011 Assessment & Plan (08/05/2022 12:25 PM EDT): Chronic, so far her work up included a negative antimitochondrial Ab, an abdominal US 10/27/2005 that showed no evidence of biliary obstruction. we had scheduled her to see a local community outreach worker 03/2009 but pt did not show up for the appointment, she then told me she was going to reschedule it for August 14 2009, and I do not believe this ever happened. Last time she came in we rescheduled it and she was seen at [facility] on 05/04/2012 GI and on recheck her Alk phos was 160and they did not recommend any further intervention. Bone scan to r/o Paget's disease of the bone. was done on 05/27/2012 and was negative for Paget's Last alk phos checked on 06/21/2020 was 203 Anxiety 11/10/2011 Depressive disorder 11/10/2011 Hypothyroidism 11/10/2011 Assessment & Plan (11/06/2022 11:29 AM EDT): Under the care of an Energy Derivatives Trader at [facility]. Last TSH and Free T4 were wnl. 12/13/2020 Previous visit I recommended to repeat, It was not done Will order again Currently on Synthroid 112 mcg po daily. Assessment & Plan (10/02/2022 12:52 PM EDT): Under the care of an Energy Derivatives Trader at [facility]. Last TSH and Free T4 were wnl. 12/13/2020 Previous visit I recommended to repeat, It was not done Will order again Currently on Synthroid 112 mcg po daily. Assessment & Plan (08/05/2022 12:15 PM EDT): Under the care of an Energy Derivatives Trader at [facility]. Last TSH and Free T4 were wnl. 12/13/2020 Will repeat Currently on Synthroid 112 mcg po daily. Obesity, morbid 11/10/2011 Assessment & Plan (04/14/2024 11:59 AM EST): Patient has been counseled and educated about diet and exercise. Personal goal of weight loss discussedPatient has comorbidity of: DM Dietary Recommendations: Fruits, vegetables, whole grains, protein foods, and fat-free or low-fat dairy products are healthy choices. Eat different types of protein foods in your diet. This can include seafood, lean meats, poultry, beans, peas, lentils, nuts, seeds, soy products, and eggs. Limit foods and beverages higher in added sugars, saturated fat, and sodium. Exercise Recommendations: At least 150 minutes of moderate-intensity physical activity per week, or an equivalent combination of moderate- and vigorous-intensity activity Obstructive sleep apnea syndrome 11/10/2011 Assessment & Plan (08/05/2022 12:23 PM EDT): Pt using her Cpap machine at home with good results. 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 Last seen on 11/16/2017 On Oxcarbazepine 600mg po BID Now under the care of [facility] neurology last seen 08/2023 they recommended Oxcarbazepine levels and [address] of brain 10/2022 showed post op changes, no acute findings MRI of Brain 06/04/2023 FINDINGS: The midline sagittal structures including the craniovertebral junction appear within normal limits. No diffusion abnormality. No evidence of acute infarct. There is mild cortical volume loss. Again noted is encephalomalacia in the left temporal lobe with associated gliosis. There is evidence of prior left pterional craniotomy. Small region of gliosis and encephalomalacia is again noted in the left frontal vertex. There is minimal stable periventricular and subcortical small vessel ischemic white matter changes in the bilateral cerebral hemispheres. Ventricles are normal in size The mastoid air cells and paranasal sinuses appear clear. Survey of the orbits is unremarkable. Normal vascular flow voids at the skull base. 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 Last seen on 11/16/2017 On Oxcarbazepine 600mg po BID Now under the care of [facility] neurology last seen 08/2023 they recommended Oxcarbazepine levels and [address] of brain 10/2022 showed post op changes, no acute findings MRI of Brain 06/04/2023 FINDINGS: The midline sagittal structures including the craniovertebral junction appear within normal limits. No diffusion abnormality. No evidence of acute infarct. There is mild cortical volume loss. Again noted is encephalomalacia in the left temporal lobe with associated gliosis. There is evidence of prior left pterional craniotomy. Small region of gliosis and encephalomalacia is again noted in the left frontal vertex. There is minimal stable periventricular and subcortical small vessel ischemic white matter changes in the bilateral cerebral hemispheres. Ventricles are normal in size The mastoid air cells and paranasal sinuses appear clear. Survey of the orbits is unremarkable. Normal vascular flow voids at the skull base. 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 Last seen on 11/16/2017 On Oxcarbazepine 600mg po BID Lost for follow up, will refer back Today c/o left sided occipital pain intensity 6/10 . Pt states the pain is just as bad as when she was diagnosed with the timor Will initiate work up with a CT of brain Assessment & Plan (08/05/2022 9:31 AM EDT): Pt under the care of Dr Prasad. Last seen on 11/16/2017 On Oxcarbazepine 600mg po BID Sensorineural hearing loss, bilateral 11/10/2011 Assessment & Plan (08/05/2022 12:22 PM EDT): Pt underwent audiology evaluation who in turn recommended ENT eval given her external auricular anatomy. She was seen 01/20/2018 He recommended an MRI of her brain and cleared her for hearing aids Type 2 diabetes mellitus wit h stage 2 chronic kidney disease ([facility]) 11/10/2011 Assessment & Plan (07/12/2024 10:33 AM EDT): Patient is here for a f/u DM remains controlled on a regimen of: Metformin XR 500 mg po daily. Hgb A1c 07/12/2024: 6.8 Eye exam was last done on: 03/18/[address] Shannon Robbins Microalbumin checked on: 08/06/2022 was: 27.4. Pt on an ARB. Will repeat Foot check risk of zero Pt reports compliance with Asa 81 mg po daily Plan: continue current regimen Pt advised to: adhere to diabetic diet No changes for now on her regimen check your blood sugars regularly check your feet on a daily basis She has a VNA [place] Evangelista [phone] Assessment & Plan (04/14/2024 12:01 PM EST): Patient is here for a f/u DM remains controlled on a regimen of: Metformin XR 500 mg po daily. Hgb A1c 03/08/2024: 6.6 from : 6.8 Eye exam was last done on: 03/18/[address] Shannon Robbins Microalbumin checked on: 08/06/2022 was: 27.4. Pt on an ARB. Will repeat Foot check risk of zero Pt reports compliance with Asa 81 mg po daily Plan: continue current regimen Pt advised to: adhere to diabetic diet No changes for now on her regimen check your blood sugars regularly check your feet on a daily basis She has a MEET [employer] [phone] Assessment & Plan (03/08/2024 9:58 AM EST): Patient is here for a f/u DM remains controlled on a regimen of: Metformin XR 500 mg po daily. Hgb A1c 03/08/2024: 6.6 from : 6.8 Eye exam was last done on: 03/18/[address] Shannon Robbins Microalbumin checked on: 08/06/2022 was: 27.4. Pt on an ARB. Will repeat Foot check risk of zero Pt reports compliance with Asa 81 mg po daily Plan: continue current regimen Pt advised to: adhere to diabetic diet No changes for now on her regimen check your blood sugars regularly check your feet on a daily basis She has a MEET [employer]ista [phone] Assessment & Plan (12/03/2023 12:02 PM EDT): Patient is here for a f/u DM remains controlled on a regimen of: Metformin XR 500 mg po daily. Hgb A1c 12/03/2023: 6.8 Eye exam was last done on: 03/18/[address] Shannon Robbins Microalbumin checked on: 12/13/2020 was: 0.5. Pt on an ARB. Foot check risk of zero Pt reports compliance with Asa 81 mg po daily Plan: continue current regimen Pt advised to: adhere to diabetic diet No changes for now on her regimen check your blood sugars regularly check your feet on a daily basis She has a MEET [employer] [phone] Assessment & Plan (08/25/2023 11:44 AM EDT): Patient is here for a f/u DM remains controlled on a regimen of: Metformin XR 500 mg po daily. Hgb A1c 08/25/2023: 6.8 Eye exam was last done on: 03/18/[address] Shannon Robbins Microalbumin checked on: 12/13/2020 was: 0.5. Pt on an ARB. Foot check risk of zero Pt reports compliance with Asa 81 mg po daily Plan: continue current regimen Pt advised to: adhere to diabetic diet No changes for now on her regimen check your blood sugars regularly check your feet on a daily basis She has a MEET [employer]ista [phone] Assessment & Plan (05/26/2023 11:53 AM EDT): Patient is here for a f/u DM remains controlled on a regimen of: Metformin XR 500 mg po daily. Hgb A1c 05/26/2023: 6.5 Eye exam was last done on: 03/18/[address] Shannon Robbins Microalbumin checked on: 12/13/2020 was: 0.5. Pt on an ARB. Foot check risk of zero Pt reports compliance with Asa 81 mg po daily Plan: continue current regimen Pt advised to: adhere to diabetic diet No changes for now on her regimen check your blood sugars regularly check your feet on a daily basis She has a MEET [employer] [phone] Assessment & Plan (11/06/2022 11:30 AM EDT): Patient is here for a f/u DM remains controlled on a regimen of: Metformin XR 500 mg po daily. Hgb A1c 11/06/2022 : 6.9 Eye exam was last done on: 03/18/[address] Shannon Robbins Microalbumin checked on: 12/13/2020 was: 0.5. Pt on an ARB. Foot check risk of zero Pt reports compliance with Asa 81 mg po daily Plan: continue current regimen Pt advised to: adhere to diabetic diet No changes for now on her regimen check your blood sugars regularly check your feet on a daily basis She has a MEET Evangelista [phone] Assessment & Plan (08/05/2022 9:41 AM EDT): Patient is here for a f/u DM remains controlled on a regimen of: Metformin XR 500 mg po daily. Hgb A1c 08/05/2022: 7.5 Eye exam was last done on: 03/18/[address] Shannon Robbins Microalbumin checked on: 12/13/2020 was: 0.5. Pt on an ARB. Foot check risk of zero Pt reports compliance with Asa 81 mg po daily Plan: continue current regimen Pt advised to: adhere to diabetic diet No changes for now on her regimen check your blood sugars regularly check your feet on a daily basis She has a VNA [place] [employer]ista [phone] Resolved Problems Problem Noted Date Diagnosed Date Resolved Date Stage 2 chronic kidney disease 08/05/2022 04/14/2024 Assessment & Plan (08/05/2022 12:13 PM EDT): Under the care of Nephrology Dr. Ta last seen 12/2021 Encounters Date Type Department Care Team Description 07/12/2024 10:00 AM EDT Office Visit [facility] [address] [place] [phone] Jossue Bravo MD Type 2 diabetes mellitus with stage 2 chronic kidney disease, without long-term current use of insulin ([facility]) ([facility]) (Primary Dx); Moderate persistent asthma without complication; Hospital discharge follow-up; Essential hypertension 07/12/2024 Telephone [facility] [address] [place] [phone] Flor Greene, RN Nurse Triage 07/12/2024 Travel 07/11/2024 Orders Only [facility] [address] [place] [address] [phone] [address] Welsh, PharmD 07/11/2024 Telephone [facility] [address] [place] [address] Jossue Bravo MD appt request 07/11/2024 Telephone [facility] [address] [place] [phone] Jossue Bravo MD chartprep 07/07/2024 Orders Only [facility] [address] [place] [phone] ProviderJuan MD 07/04/2024 Refill [facility] [address] [place] [address] Jossue Bravo MD Type 2 diabetes mellitus without complications (CMS/HCC) 06/30/2024 Telephone [facility] [address] [place] [address] Jossue Bravo MD Nurse Triage 06/30/2024 Refill [facility] [address] [place] [address] Jossue Bravo MD Chronic right shoulder pain 06/10/2024 Telephone [facility] [address] [place] [address] Jossue Bravo MD Med Refill 06/10/2024 Telephone [facility] [place] [address] Jossue Bravo MD ER Follow-up 06/09/2024 Refill [facility] [address] [place] [address] Jossue Bravo MD Mixed hyperlipidemia; Seasonal allergies 04/20/2024 Telephone [facility] [place] [address] Jossue Bravo MD Durable Medical Equipment (Diabetic shoes) 04/14/2024 11:30 AM EST Office [place] [facility] [place] [address] Jossue Bravo MD Essential hypertension (Primary Dx); Type 2 diabetes mellitus with stage 2 chronic kidney disease, without long-term current use of insulin (CMS/HCC) (CMS/HCC); Seizure disorder (CMS/HCC); Primary hyperparathyroidism (CMS/HCC); Stage 3b chronic kidney disease (CMS/HCC); Chronic heart failure with preserved ejection fraction (CMS/HCC); Obesity, morbid (CMS/HCC); Dietary counseling; Exercise counseling; Low back pain, unspecified back pain laterality, unspecified chronicity, unspecified whether sciatica present 04/14/2024 Travel from Last 3 Months Immunizations Name Administration Dates Next Due Hep B, Unspecified 04/27/2015 Influenza High-dose Quadriva lent Preservative Free 12/17/2021,12/13/2020,12/27/2019 Influenza injectable quadriv alent IIV4 with preservative 11/19/2017,12/12/2014 Influenza injectable quadriv alent preservative free 11/25/2018,01/15/2017 Influenza, High Dose Seasona l, Preservative Free 12/03/2023 Influenza, IIV3, injectable 11/24/2013, 2 Influenza, Split (incl. shima fied surface antigen) 12/09/2012,11/10/2011 Pfizer Covid-19 Vaccine 12+ 12/03/2023 Pfizer Covid-19 Vaccine 12+ Bivalent 12/17/2021 Pneumococcal Conjugate PCV 20 12/17/2021 Pneumococcal Polysaccharide PPSV23 04/30/2011 TD (adult), 2 Lf tetanus tox oid, preservative free, adsorbed 02/09/2018,12/06/2007 Zoster, Recombinant 04/06/2020,12/23/2019 Zoster, live 03/09/2014 Social History Tobacco Use Types Packs/Day Years Used Date Smoking Tobacco: Never Passive Smoke Exposure: Never Smokeless Tobacco: Never Tobacco Cessation:Counseling Given: Not Answered Alcohol Use Standard Drinks/Week Comments Never 0 [...] got money to buy more: Never True 03/31/2024 Within the past 12 months,th e food [...] Recorded Patient Health Questionnaire-2 Score 1 08/25/2023 Internet Access Answer Date Recorded Internet Access Q1 No 03/31/2024 Internet Access Q2 I do not want or need it 03/04 Comments Unknown Sex and Gender Information Value Date Recorded Sex Assigned at Female 12/30/2021 10:14 AM EDT Legal Sex Female 10:14 AM EDT Gender Identity Female 12/30/2021 10:14 AM EDT Sexual Orientation Straight 12/30/2021 10 :14 AM EDT Last Filed Vital Signs Vital Sign Reading Time Taken Comments Blood Pressure 148/82 07/12/2024 10:02 AM EDT Pulse 93 07/12/2024 10:02 AM EDT Temperature 36.7 ??C (98.1 ??F) 07/12/2024 1 0:02 AM EDT Respiratory Rate 20 07/12/2024 10:0 2 AM EDT Oxygen Saturation 95% 07/12/2024 10: 02 AM EDT Inhaled Oxygen Concentration - - Weight 74.8 kg (164 lb 12.8 oz) 025 10:02 AM EDT Height 145.1 cm (4' 9.11 ) 07/12/2024 1 0:02 AM EDT Body Mass Index 35.53 07/12/2024 10:02 AM EDT Plan of Treatment Upcoming Encounters Date Type Department Care Team (Late st Contact Info) Description 09/13/2024 1:00 PM EDT Office Visit [facility] [address] [place], [place] [phone] Jossue Bravo MD [address] [place] [address] Health Maintenance Due Date Last Done Comments CT Colonography 1953 FIT DNA/Cologuard 1953 FIT 1953 FOBT 1953 Sigmoidoscopy 1953 Diabetes: Foot Exam 1963 Eye Exam 1963 Hepatitis C Screening 1971 RSV Patients and Patients Aged 60 years or older (1 - Risk 60-74 years 1-dose series) 2013 Hepatitis B Vaccines (2 of 3 - 19+ 3-dose series) 05/25/2015 04/27/2015 DTaP/Tdap/Td Vaccines (1 - Tdap) 02/10/2018 02/09/2018, 12/06/2007 Colonoscopy 12/03/2021 12/03/2016 Colorectal Cancer Screening 12/03/2021 Lipid Panel 08/06/2023 08/05/2022, 11/0 03/2021, 12/13/2020, Additional history exists Depression Screening 08/24/2024 08/25/2023, 08/25/19 24 Diabetes: Hemoglobin A1C 10/12/2024 025, 03/08/2024, 12/03/2023, Additional history exists Alcohol/Substance Use Screening 12/02/2024 12/03/2023 SDOH Screening 03/31/2025 03/31/2024 Tobacco Screening 07/12/2025 07/12/2024 Mammogram 12/28/2025 12/29/2023, 11/30, 12/10/2023, Additional history exists Zoster Vaccines Completed 04/06/2020, 12/01, 03/09/2014 Pneumococcal Vaccine: 50+ Years Completed 12/17/2021, 04/30/2011 COVID-19 Vaccine Completed 12/03/2023, , 03/15/2021, Additional history exists Influenza Vaccine Completed 12/03/2023, , 12/13/2020, Additional history exists HIB Vaccines Aged Out No longer eligi ble based on patient's age to complete this topic HPV Vaccines Aged Out No longer eligi ble based on patient's age to complete this topic Hepatitis A Vaccines Aged Out No long er eligible based on patient's age to complete this topic IPV Vaccines Aged Out No longer eligi ble based on patient's age to complete this topic Meningococcal Vaccine Aged Out No ernestine dariana eligible based on patient's age to complete this topic RSV under 20 months Aged Out No longe r eligible based on patient's age to complete this topic Rotavirus Vaccines Aged Out No longer eligible based on patient's age to complete this topic Procedures Procedure Name Priority Date/Time Associated Diagnosis Comments CBC WITH AUTO DIFFERENTIAL Routine 07/12/2024 10:52 AM EDT Chronic heart failure with preserved ejection fraction (CMS/HCC) POCT GLYCATED HEMOGLOBIN, TOTAL Routine 07/12/2024 10:13 AM EDT Type 2 diabetes mellitus with stage 2 chronic kidney disease, without long-term current use of insulin (CMS/HCC) ([facility]) POCT GLUCOSE Routine 07/12/2024 10:11 AM EDT Type 2 diabetes mellitus with stage 2 chronic kidney disease, without long-term current use of insulin (CMS/HCC) ([facility]) CT CHEST ANGIO W AND WO IV CONTRAST Routine 07/06/2024 7:01 AM EDT POCT GLUCOSE Routine 04/14/2024 11:39 AM EST Type 2 diabetes mellitus with stage 2 chronic kidney disease, without long-term current use of insulin (CMS/HCC) (CMS/HCC) MAMMOGRAPHY Routine 12/29/2023 LIPID PANEL WITH REFLEX TO DIRECT LDL Routine 08/05/2022 10:00 AM EDT Type 2 diabetes mellitus without complication, without long-term current use of insulin (CMS/HCC) COLONOSCOPY Routine 12/03/2016 from Last 3 Months or Most Recently Relevant to Health Maintenance Results * (ABNORMAL) CBC auto differential (07/12/2024 10:52 AM EDT) White Blood Count 10.8 4.8 - 10.8 X10*3/uL [facility] Red Blood Count 3.99(L) 4.20 - 5.50 X10*6/uL [facility] Hemoglobin 12.2 12.0 - 16.0 g/dl [facility] Hematocrit 38.4 37.0 - 47.0 % [facility] Mean Corpuscular Volume 96.2 80.0 - 98.0 fL [facility] Mean Corpuscular Hemoglobin 30.6 27.0 - 33.0 pg [facility] Mean Corpuscular HGB Conc 31.8 31.0 - 35.0 g/dl [facility] Red Cell Distribution Width 13.7 11.0 - 16.0 % [facility] Platelet Count 234 160 - 400 X10*3/uL [facility] Mean Platelet Volume 10.6 9.4 - 12.3 fL [facility] Neutrophils Percent Auto 79.2(H) 45 - 73 % [facility] Imm Gran Pct Auto 1.5(H) 0.0 - 0.4 % [facility] Lymphocytes Percent Auto 15.7(L) 20 - 40 % [facility] Monocytes Percent Auto 3.1 2 - 11 % [facility] Eosinophils Percent Auto 0.3 0 - 4 % [facility] Basophils Percent Auto 0.2 0 - 2 % [facility] NRBC Pct Auto 0.0 0.0 - 0.2 /100WBC [facility] Neutrophils Absolute Auto 8.5(H) 2.0 - 8.3 x10*3/uL [facility] Imm Gran Abs Auto 0.16(H) 0.00 - 0.03 X10*3/uL [facility] Lymphocytes Absolute Auto 1.7 1.2 - 4.9 X10*3/uL [facility] Monocytes Absolute Auto 0.3 0.1 - 1.2 X10*3/uL [facility] Eosinophils Absolute Auto 0.0 0.0 - 0.4 X10*3/uL [facility] Basophils Absolute Auto 0.0 0.0 - 0.2 X10*3/uL [facility] NRBC Abs Auto 0.000 0.0 - 0.012 X10*3/uL [facility] Blood Venous blood specimen / Unknown 07/12/2024 10:52 AM EDT 07/12/2024 11:23 AM EDT Jossue Tavares MD LAB BLOOD ORDERABLES Final Result [facility] [address] [place] [phone] * (ABNORMAL) POCT HGB A1C (07/12/2024 10:13 AM EDT) Hemoglobin A1C 6.8(A) 4.0 - 6.0 % QC Media Lot # [id number] Lot# Expiration Date Blood 07/12/2024 10:1 3 AM EDT Jossue Tavares MD POINT OF CARE TEST EN TER/EDIT ORDERABLES Final Result * POCT Glucose (07/12/2024 10:11 AM EDT) Only the most recent of2 resultswithin the time period is included. Glucose Blood, POC 199 60 - 200 mg/dL [employer] Media Lot # [id number] Lot# Expiration Date Blood Capillary blood specimen / Unknown 07/12/2024 10:11 AM EDT Jossue Tavares MD POINT OF CARE TEST EN TER/EDIT ORDERABLES Final Result * CT CHEST ANGIO W AND WO IV CONTRAST (07/06/2024 7:01 AM EDT) Anatomical Region Laterality Modality Computed Tomogra phy Historical Provider IMG CT PROCEDURES Final R esult * Hm Mammography (12/29/2023) Mammogram BIRADS 2 Normal, Abnormal, BIRADS 1 , BIRADS 2 Anatomical Region Laterality Modality Other Historical Provider HEALTH MAINTENANCE Final Result * (ABNORMAL) Lipid Panel with Reflex to Direct LDL (08/05/2022 10:00 AM EDT) Cholesterol, Total 169 <200 mg/dL [employer] [place] [facility] HDL Cholesterol 64 > OR = 50 mg/dL [employer] [place] [facility] Triglycerides 323(H) <150 mg/dL [employer] [place] [facility] Comment: If a non-fasting specimen was collected, consider repeat triglyceride testing on a fasting specimen if clinically indicated. Destin et al. J. of Clin. Lipidol. 2015;9:129-169. LDL Cholesterol 66 mg/dL (calc) [employer] [place] [facility] Comment: Reference range: <100 Desirable range <100 mg/dL for primary prevention; ?? <70 mg/dL for patients with CHD or diabetic patients with > or = 2 CHD risk factors. LDL-C is now calculated using the Theresa calculation, which is a validated novel method providing better accuracy than the Friedewald equation in the estimation of LDL-C. Lloyd SS et al. CECILY. 2013;310(19): 4647-2944 (http://education.SocialKaty/faq/WUQ824) Chol/HDLC Ratio 2.6 <5.0 (calc) [employer] [place] [facility] Non-HDL Cholesterol 105 <130 mg/dL (calc) [employer] [place] [facility] Comment: For patients with diabetes plus 1 major ASCVD risk factor, treating to a non-HDL-C goal of <100 mg/dL (LDL-C of <70 mg/dL) is considered a therapeutic option. 08/05/2022 10:0 0 AM EDT 08/05/2022 10:01 AM EDT Narrative [facility] - 08/06/2022 5:07 PM EDT FASTING:NO FASTING: NO Jossue Tavares MD LAB BLOOD ORDERABLES Final Result [facility] [address], [place] [address] [employer] [place] [facility] [address] [place] [phone] * Colonoscopy (12/03/2016) Colonoscopy Normal Normal Comment:Repeat in 5 years us Historical Provider MD HEALTH MAINTENANCE Final Result from Last 3 Months or Most Recently Relevant to Health Maintenance Insurance [facility] STANDARD [facility] [employer] OPTIONS (O D-SNP) Care Teams Orthopaedic Nurse Relationship Specialty Start Date End Date Jossue Bravo MD [address] [place] [address] PCP - General Internal Medicine 07/07/16 [facility] 04/10/20
--- OUTSIDE RECORDS SUMMARY | 2024-07-12 12:14 | XMS_ITS | Encounter Summary ---
Author Organization [employer] Address [address] 7[address] [place] [address] Care Team Providers Care [address] Vendor Name Role Phone Jossue Bravo MD Primary Care Provide r Reason for Visit * Reason Onset Date Comments appt request 07/11/2024 Encounter Details Date Type Department Care Team ([facility] st Contact Info) Description 07/11/2024 Telephone [facility] [address] [place], [place] [phone] Jossue Bravo MD [address] [place], [place] [phone] appt request Social History Tobacco Use Types Packs/Day Years Used Date Smoking Tobacco: Never Passive Smoke Exposure: Never Smokeless Tobacco: Never Alcohol Use Standard [...] AM EDT documented as of this encounter Miscellaneous Notes * Telephone Encounter - Lamar Riddle RN - 07/11/2024 3:22 PM EDT Telephone call to pt via [email or web address] quality assurance clerk #[id number]. Pt states that her granddaughter is now going to take her to the appt tomorrow with Dr Guerrero at 10am, confirmed with pt that appt is not cancelled. Advised pt that all discharge paperwork will be in chart for PCP to review. Pt confirmed that she is taking prednisone as prescribed [place] [facility] [place], pt states she has VNA nurse assisting with meds. Advised pt to call back clinic PRN with any questions or concerns before appt, pt verbalized understanding. [facility] 07/08/24: acute asthma exacerbation [facility]: 07/06/24-07/07/24 asthma exacerbation Updated appt notes, will message pharmacy for med rec and send FYI to PCP as he is out of office today. * Telephone Encounter - Nelly Davila RN - 07/11/2024 2:21 PM EDT Incoming call from pt on critical line. Pt states she has appt with Dr Guerrero tomorrow am. 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 Pt upset/ crying on the phone, requests this message send to team nurses leonard. documented in this encounter Plan of Treatment Upcoming Encounters Date Type Department Care Team (Late st Contact Info) Description 09/13/2024 1:00 PM EDT Office Visit [facility] [address] [place] [address] Jossue Bravo MD [address] [place] [address] documented as of this encounter Visit Diagnoses Not on filedocumented in this encounter Additional Health Concerns Assessment Noted Time PHQ-9 Depression Total Score: 3 08/25/19 24 11:39 AM EDT documented as of this encounter Care Teams [address] Vendor Relationship Specialty Start Date End Date Jossue Bravo MD [address] [place] [address] PCP - General Internal Medicine 07/07/16 [facility] 04/10/20 documented as of this encounter
--- OUTSIDE RECORDS SUMMARY | 2024-07-12 12:14 | XMS_ITS | Encounter Summary ---
Author Organization [employer] Address [address] [place] [address] 7[address] [place] [address] Care Team Providers Care Catalytic Case Operator Name Role Phone Jossue Bravo MD Primary Care Provide r Reason for Visit * Reason Comments Med Refill Encounter Details Date Type Department Care Team (Late st Contact Info) Description 11/14/2022 Refill [facility] [address] [place], [place] [phone] Jossue Bravo MD [address] [place] [address] Partial symptomatic epilepsy with complex partial seizures, not intractable, without status epilepticus (CMS/HCC) Social History Tobacco Use Types Packs/Day Years Used Date Smoking Tobacco: Never Smokeless Tobacco: Never Depression Answer Date Recorded Patient Health Questionnaire-9 Score 0 08/05/2022 Depression Answer Date Recorded Patient Health Questionnaire-2 [...] Encounters Date Type Department Care Team (Late Contact Info) Description 09/13/2024 1:00 PM EDT Office Visit [facility] [address] [place], [place] [phone] Jossue Bravo MD [address] [place] [phone] documented as of this encounter Visit Diagnoses Diagnosis Partial symptomatic epilepsy with complex partial seizures, not intractable, without status epilepticus (CMS/HCC) documented in this encounter Additional Health Concerns Assessment Noted Time PHQ-9 Depression Total Score: 0 08/06/19 23 9:30 AM EDT documented as of this encounter Care Teams Catalytic Case Operator Relationship Specialty Start Date End Date Jossue Bravo MD [address] [place] [address] PCP - General Internal Medicine 07/07/16 [facility] 04/10/20 documented as of this encounter
--- OUTSIDE RECORDS SUMMARY | 2024-07-12 12:14 | XMS_ITS | Encounter Summary ---
Author Organization [employer] Address [address] [place] [address] 7t [place] [address] Care Team Providers Care Clerk Of Superior [address] Name Role Phone Jossue Bravo MD Primary Care Provide r Reason for Visit * Reason Onset Date Comments Med Refill 08/12/2022 Encounter Details Date Type Department Care Team (Late st Contact Info) Description 08/12/2022 Telephone [facility] [address] [place], [place] [phone] Jossue Bravo MD [address] [place], [place] [phone] Med Refill Social History Tobacco Use Types Packs/Day Years Used Date Smoking Tobacco: Never Assessed Depression Answer Date Recorded Patient Health Questionnaire-9 Score 0 08/05/2022 Depression Answer Date Recorded Patient Health Questionnaire-2 Score 0 08/05/2022 Comments Unknown Sex and Gender Information Value Date Recorded Sex Assigned at Female 12/30/2021 10:14 AM EDT Legal Sex Female 10:14 AM EDT Gender Identity Female 12/30/2021 10:14 AM EDT Sexual Orientation Straight 12/30/2021 10 :14 AM EDT COVID-19 Exposure Response Date Recorded In the last 10 days, have yo u been in contact with someone who was confirmed or suspected to have Coronavirus/COVID-19? No / Unsure 08/05/2022 9:09 AM EDT documented as of this encounter Miscellaneous Notes * Telephone Encounter - Fallon Garvin LPN - 08/12/2022 12:48 PM EDT Medication was sent to [facility] on 04/15/22 90 day supply with 1 refill. * Telephone Encounter - Sandhya Isaac - 08/12/2022 11:53 AM EDT Tc from [facility] requesting a medication refill for omeprazole (PriLOSEC) [address] capsule documented in this encounter Plan of Treatment Upcoming Encounters Date Type Department Care Team (Late st Contact Info) Description 09/13/2024 1:00 PM EDT Office Visit [facility] [address] [place] [address] Jossue Bravo MD [address] [place] [address] documented as of this encounter Visit Diagnoses Not on filedocumented in this encounter Additional Health Concerns Assessment Noted Time PHQ-9 Depression Total Score: 0 08/06/19 23 9:30 AM EDT documented as of this encounter Care Teams Clerk Of Superior Court Relationship Specialty Start Date End Date Jossue Bravo MD [address] [place], [place] [phone] PCP - General Internal Medicine 07/07/16 [facility] 04/10/20 documented as of this encounter
--- OUTSIDE RECORDS SUMMARY | 2024-07-12 12:14 | XMS_ITS | Encounter Summary ---
Author Organization [employer] Address 75 [facility] 7t [place] [address] Care Team Providers Care Clinical Data Research Name Role Phone Jossue Bravo MD Primary Care Provide r Reason for Visit * Reason Onset Date Comments Med Refill 04/09/2023 Encounter Details Date Type Department Care Team ([facility] st Contact Info) Description 04/09/2023 Telephone [facility] MEDICINE [address] [place], [place] [phone] Jossue Bravo MD [address] [place], [place] [phone] Med Refill Social History Tobacco Use Types [...] Telephone Encounter - Fallon Garvin LPN - 04/09/2023 4:12 PM EST Medication is prescribed by Ciro Nazario. * Telephone Encounter - Terri Edmondson - 04/09/2023 4:07 PM EST TC from pt requesting medication refill. Medications needing refill : furosemide (Lasix) 20 MG tablet To be sent to: [facility] - [place], [place] - [phone] - [place] - [address] documented in this encounter Plan of Treatment Upcoming Encounters Date Type Department Care Team (Late st Contact Info) Description 09/13/2024 1:00 PM EDT Office Visit [facility] MED[facility]INE [address] [place] [address] Jossue Bravo MD [address] [place] [address] documented as of this encounter Visit Diagnoses Not on filedocumented in this encounter Additional Health Concerns Assessment Noted Time PHQ-9 Depression Total Score: 0 08/06/19 23 9:30 AM EDT documented as of this encounter Care Teams Clinical Data Research Relationship Specialty Start Date End Date Jossue Bravo MD [address] [place] [address] PCP - General Internal Medicine 07/07/16 [facility] 04/10/20 documented as of this encounter
--- OUTSIDE RECORDS SUMMARY | 2024-07-12 12:14 | XMS_ITS | Encounter Summary ---
Author Organization [employer] Address 75 [facility] 7t [place] [address] Care Team Providers Care Office Administrative Assistant Name Role Phone Jossue Bravo MD Primary Care Provide r Reason for Visit * Reason Onset Date Comments Med Refill 06/10/2024 Encounter Details Date Type Department Care Team ([facility] st Contact Info) Description 06/10/2024 Telephone [facility] MEDICINE 230 [place], [place] [phone] Jossue Bravo MD 230 [place], [place] [phone] Med Refill Social History Tobacco Use Types [...] Telephone Encounter - Fallon Garvin LPN - 06/10/2024 1:32 PM EDT Medications were sent to [facility] yesterday 06/09/24. * Telephone Encounter - Chad Bates - 06/10/2024 1:28 PM EDT TC from pt requesting medication refill. Medications needing refill : atorvastatin (Lipitor) 40 MG tablet loratadine (Claritin) 10 MG tablet To be sent to: [facility] - [place] - [phone] - [place] - [address] documented in this encounter Plan of Treatment Upcoming Encounters Date Type Department Care Team (Late st Contact Info) Description 09/13/2024 1:00 PM EDT Office Visit [facility] [address] [facility] [place] [address] Jossue Bravo MD [address] [facility] [place] [address] documented as of this encounter Visit Diagnoses Not on filedocumented in this encounter Additional Health Concerns Assessment Noted Time PHQ-9 Depression Total Score: 3 08/25/19 24 11:39 AM EDT documented as of this encounter Care Teams Office Administrative Assistant Relationship Specialty Start Date End Date Jossue Bravo MD [address] [facility] [place] [address] PCP - General Internal Medicine 07/07/16 [facility] 04/10/20 documented as of this encounter
--- OUTSIDE RECORDS SUMMARY | 2024-07-12 12:14 | XMS_ITS | Encounter Summary ---
Author Organization [employer] Address [address] [facility] 7t [place] [address] Care Team Providers Care Latex Fashions Designer Name Role Phone Jossue Bravo MD Primary Care Provide r Encounter Details Date Type Department Care Team ([facility] st Contact Info) Description 07/12/2024 10:00 AM EDT Office Visit [facility] MEDICINE 230 [place], [place] [phone] Jossue Bravo MD [address] [place] [address] Type 2 diabetes mellitus with stage 2 chronic kidney disease, without long-term current use of insulin (CMS/HCC) ([facility]) (Primary Dx); Moderate persistent asthma without complication; Hospital discharge follow-up; Essential hypertension Social History Tobacco Use Types Packs/Day Years [...] AM EDT documented as of this encounter Last Filed Vital Signs Vital Sign Reading [...] Mass Index 35.53 07/12/2024 10:02 AM EDT documented in this encounter Progress Notes * Jossue Tavares MD - 07/12/2024 10:00 AM EDT SUBJECTIVE Ivis Lyles is a 69 y.o. female who presents for No chief complaint on file.. Asthma There is no cough or shortness of breath. Pertinent negatives include no chest pain, fever, headaches or sore throat. Her past medical history is significant for asthma. Review of Systems Constitutional: Negative for fever. HENT: Negative for sore throat. Respiratory: Negative for cough and shortness of breath. Cardiovascular: Negative for chest pain. Gastrointestinal: Negative for abdominal pain. Neurological: Negative for headaches. Allergies Allergen Reactions Amlodipine Dizziness Hydrochlorothiazide-Triamterene Verapamil Other reaction(s): constipation OBJECTIVE Vitals: 07/12/24 1002 BP: (!) 148/82 BP Location: Left arm Patient Position: Sitting BP Cuff Size: Adult Pulse: 93 Resp: 20 Temp: 98.1 ??F (36.7 ??C) TempSrc: Oral SpO2: 95% Weight: 164 lb 12.8 oz (74.8 kg) Height: 4' 9.11 (1.451 m) Physical Exam Vitals reviewed. Constitutional: Appearance: Normal appearance. HENT: Head: Normocephalic and atraumatic. Right Ear: External ear normal. Left Ear: External ear normal. Nose: Nose normal. Mouth/Throat: Mouth: Mucous membranes are moist. Eyes: Conjunctiva/sclera: Conjunctivae normal. Cardiovascular: Rate and Rhythm: Normal rate and regular rhythm. Pulmonary: Effort: Pulmonary effort is normal. Breath sounds: Normal breath sounds. Skin: General: Skin is warm. Neurological: Mental Status: She is alert. Mental status is at baseline. Assessment/Plan Problem List Items Addressed This Visit Type 2 diabetes mellitus with stage 2 chronic kidney disease (CMS/HCC) (CMS/HCC) - Primary Patient is here for a f/u DM [...] basis She has a VNA [facility] Evangelista [phone] Relevant Orders POCT Glucose (Completed) POCT HGB A1C (Completed) Moderate persistent asthma without complication Pt followed by Looping Machine Operator Dr Aleksandr Mann, last seen 05/2024 Recommended she stayed on Advair, Montelukast and Albuterol PRN Hospital discharge follow-up Pt here for a HDF Initially admitted to [facility] 07/06-/07/07/2024 After she presented with SOB, chest tightness, productive cough with green + yellow sputum. Patientfound with hypokalemia (3.3 mmol/L) and tested positive for human rhinovirus/enterovirus. Patient treated with PO potassium and systemic steroids with bronchodilators for asthma exacerbation triggered by rhinovirus. Patient was discharged with 5 day course of steroids and instructions to continue chronic medications. Most recently she was readmitted to [facility] from 07/09/07/11/2024 for persistent shortness of breath or productive cough. 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 Asthma exacerbation was treated with a course of azithromycin, bronchodilators, and systemic steroids. Patient was discharged with instructions to take 2 more days of prednisone to total a 5 day course. Essential hypertension Patient here for a f/u BP remains controlled She is on a regimen of: Losartan 100 mg po daily Paleontology Teacher recommended to discontinue lasix (prescribed by Cardiology) [...] CREATININE 1.00 05/26/2023 Normal, will repeat BMP Relevant Orders Basic Metabolic Panel No future appointments. documented in this encounter Miscellaneous Notes * Assessment & Plan Note - Jossue Tavares MD - 07/12/2024 10:34 AM EDT Associated Problem(s): Essential hypertension Patient here for a f/u BP remains controlled She is on a regimen of: Losartan 100 mg po daily Paleontology Teacher recommended to discontinue lasix (prescribed by Cardiology) [...] CREATININE 1.00 05/26/2023 Normal, will repeat BMP * Assessment & Plan Note - Jossue Tavares MD - 07/12/2024 10:33 AM EDT Associated Problem(s): Type 2 diabetes mellitus with stage 2 chronic kidney disease (CMS/HCC) (CMS/HCC) Patient is here for a f/u DM [...] basis She has a VNA [facility] Evangelista [phone] * Assessment & Plan Note - Jossue Tavares MD - 07/12/2024 10:33 AM EDT Associated Problem(s): Hospital discharge follow-up Pt here for a HDF Initially admitted to [facility] 07/06-/07/07/2024 After she presented with SOB, chest tightness, productive cough with green + yellow sputum. Patientfound with hypokalemia (3.3 mmol/L) and tested positive for human rhinovirus/enterovirus. Patient treated with PO potassium and systemic steroids with bronchodilators for asthma exacerbation triggered by rhinovirus. Patient was discharged with 5 day course of steroids and instructions to continue chronic medications. Most recently she was readmitted to [facility] from 07/09/07/11/2024 for persistent shortness of breath or productive cough. 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 Asthma exacerbation was treated with a course of azithromycin, bronchodilators, and systemic steroids. Patient was discharged with instructions to take 2 more days of prednisone to total a 5 day course. * Assessment & Plan Note - Jossue Tavares MD - 07/12/2024 10:27 AM EDT Associated Problem(s): Moderate persistent asthma without complication Pt followed by Looping Machine Operator Dr Aleksandr Mann, last seen 05/2024 Recommended she stayed on Advair, Montelukast and Albuterol PRN documented in this encounter Plan of Treatment Upcoming Encounters Date Type Department Care Team (Late st Contact Info) Description 09/13/2024 1:00 PM EDT Office Visit [facility] [address] [place] [address] Jossue Bravo MD [address] [place] [address] Scheduled Orders Name Type Priority Associated Diagnoses Orde r Schedule Basic Metabolic Panel Lab Routine Essential hypertension Ordered: 07/12/2024 documented as of this encounter Procedures Procedure Name Priority Date/Time Associated Diagnosis Comments POCT GLYCATED HEMOGLOBIN, TOTAL Routine 07/12/2024 10:13 AM EDT Type 2 diabetes mellitus with stage 2 chronic kidney disease, without long-term current use of insulin ([facility]) ([facility]) POCT GLUCOSE Routine 07/12/2024 10:11 AM EDT Type 2 diabetes mellitus with stage 2 chronic kidney disease, without long-term current use of insulin ([facility]) ([facility]) documented in this encounter Results * (ABNORMAL) POCT HGB A1C (07/12/2024 10:13 AM EDT) Hemoglobin A1C 6.8(A) 4.0 - 6.0 % QC Media Lot # [id number] Lot# Expiration Date Blood 07/12/2024 10:1 3 AM EDT us Jossue Tavares MD POINT OF CARE TEST EN TER/EDIT ORDERABLES Final Result * POCT Glucose (07/12/2024 10:11 AM EDT) Glucose Blood, POC 199 60 - 200 mg/dL QC Media Lot # [id number] Lot# Expiration Date Blood Capillary blood specimen / Unknown 07/12/2024 10:11 AM EDT us Jossue Tavares MD POINT OF CARE TEST EN TER/EDIT ORDERABLES Final Result documented in this encounter Visit Diagnoses Diagnosis Type 2 diabetes mellitus with stage 2 chronic kidney disease, without long-term current use of insulin ([facility]) ([facility])- Primary Moderate persistent asthma without complication Hospital discharge follow-up Other follow-up examination Essential hypertension Unspecified essential hypertension documented in this encounter Additional Health Concerns Assessment Noted Time PHQ-9 Depression Total Score: 3 08/25/19 24 11:39 AM EDT documented as of this encounter Care Teams Latex Fashions Designer Relationship Specialty Start Date End Date Jossue Bravo MD [address] [place] [address] PCP - General Internal Medicine 07/07/16 [facility] 04/10/20 documented as of this encounter
--- OUTSIDE RECORDS SUMMARY | 2024-07-12 12:14 | XMS_ITS | Encounter Summary ---
Author Organization [email or web address] Address 75 [facility] 7t [place] [address] Care Team Providers Care Field Artillery Radar Operator Name Role Phone Jossue Bravo MD Primary Care Provide r Encounter Details Date Type Department Care Team (Latest Contact Info) Description 07/12/2024 Travel Social History Tobacco Use Types Packs/Day Years [...] Description 09/13/2024 1:00 PM EDT Office Visit [facility] MED[facility]INE [address] [place] [address] Jossue Bravo MD [address] [place] [address] documented as of this encounter Visit Diagnoses Not on filedocumented in this encounter Additional Health Concerns Assessment Noted Time PHQ-9 Depression Total Score: 3 08/25/19 24 11:39 AM EDT documented as of this encounter Care Teams Field Artillery Radar Operator Relationship Specialty Start Date End Date Jossue Bravo MD [address] [place] [address] PCP - General Internal Medicine 07/07/16 [facility] 04/10/20 documented as of this encounter
--- OUTSIDE RECORDS SUMMARY | 2024-07-12 12:14 | XMS_ITS | Encounter Summary ---
Author Organization [employer] Address [address] [facility] 7t [place] [address] Care Team Providers Care Roll Form Operator Name Role Phone Jossue Bravo MD Primary Care Provide r Reason for Visit * Reason Comments Med Refill Encounter Details Date Type Department Care Team (Late st Contact Info) Description 03/02/2024 Refill [facility] MEDICINE 230 [place], [place] [phone] Jossue Bravo MD [address] [place], [place] [phone] Tinea corporis Social History Tobacco Use Types Packs/Day Years [...] Description 09/13/2024 1:00 PM EDT Office Visit [facility]INE [address] [place] [address] Jossue Bravo MD [address] [place] [address] documented as of this encounter Visit Diagnoses Diagnosis Tinea corporis Dermatophytosis of the body documented in this encounter Additional Health Concerns Assessment Noted Time PHQ-9 Depression Total Score: 3 08/25/19 24 11:39 AM EDT documented as of this encounter Care Teams Roll Form Operator Relationship Specialty Start Date End Date Jossue Bravo MD [address] [place] [address] PCP - General Internal Medicine 07/07/16 [facility] 04/10/20 documented as of this encounter
--- OUTSIDE RECORDS SUMMARY | 2024-07-12 12:14 | XMS_ITS | Encounter Summary ---
Author Organization [employer] Address 75 [facility] 7t [place] [address] Care Team Providers Care Wheel Worker Name Role Phone Jossue Bravo MD Primary Care Provide r Reason for Visit * Reason Onset Date Comments Nurse Triage 03/24/2023 Encounter Details Date Type Department Care Team ([facility] st Contact Info) Description 03/24/2023 Telephone [facility] MEDICINE 230 [place], [place] [phone] Jossue Bravo MD [address] [place], [place] [phone] Nurse Triage Social History Tobacco Use Types Packs/Day Years [...] encounter Miscellaneous Notes * Telephone Encounter - Marivel Suggs RN - 03/24/2023 4:08 PM EST Triage call with [facility] [place] [id number] Pt is speaking easily, not SOB. Pt reports having a cough but, it has gotten better. Pt reports some yellow sputum at times but, no difficulty breathing noted. Pt is neg for fever or BRAYAN symptoms, neg for ankle edema. Voice is strong. Pt is asking if Dr. Guerrero will be seeing Pt soon. Advised thatthis report will be sent to Dr. Guerrero's nursing team for follow up. Pt agrees with this disposition and plan. No further questions offered. Protocol Used: Cough (Adult) Protocol-Based Disposition: Home Care Positive Triage Question: * Cough with no complications * All higher-acuity triage questions were negative Care Advice Discussed: * Reassurance and Education - Cough * Cough Medicines * Coughing Spells * Prevent Dehydration * Humidifier * Reasons To Call Back - Difficulty breathing - Cough lasts more than 3 weeks - Fever lasts more than 3 days - You become worse * Telephone Encounter - Radha Welch - 03/24/2023 3:26 PM EST Symptom: Cough Outcome: Schedule an appointment to be seen within 24 hours Reason: Caller denied all higher acuity questions The caller accepted this outcome documented in this encounter Plan of Treatment Upcoming Encounters Date Type Department Care Team ([facility] st Contact Info) Description 09/13/2024 1:00 PM EDT Office Visit [facility] [address] [facility] [place] [address] Jossue Bravo MD [address] [place] [address] documented as of this encounter Visit Diagnoses Not on filedocumented in this encounter Additional Health Concerns Assessment Noted Time PHQ-9 Depression Total Score: 0 08/06/19 23 9:30 AM EDT documented as of this encounter Care Teams Wheel Worker Relationship Specialty Start Date End Date Jossue Bravo MD [address] [facility] [place] [address] PCP - General Internal Medicine 07/07/16 [facility] 04/10/20 documented as of this encounter
--- OUTSIDE RECORDS SUMMARY | 2024-07-12 12:14 | XMS_ITS | Encounter Summary ---
Author Organization [employer] Address [address] [place] [address] 7t [place] [address] Care Team Providers Care Sports Athletic Trainer Name Role Phone Jossue Bravo MD Primary Care Provide r Encounter Details Date Type Department Care Team (Late st Contact Info) Description 03/18/2022 Orders Only [facility] MED & PEDS [address] [place] [address] Fallon Garvin LPN Social History Tobacco Use Types Packs/Day Years [...] Description 09/13/2024 1:00 PM EDT Office Visit [facility] MEDICINE [address] [place] [address] Jossue Bravo MD [address] [place], [place] [phone] documented as of this encounter Visit Diagnoses Not on filedocumented in this encounter Care Teams Sports Athletic Trainer Relationship Specialty Start Date End Date Jossue Bravo MD [address] [place], [place] [phone] PCP - General Internal Medicine 07/07/16 [facility] 04/10/20 documented as of this encounter
--- OUTSIDE RECORDS SUMMARY | 2024-07-12 12:14 | XMS_ITS | Encounter Summary ---
Author Organization [employer] Address 75 [facility] 7t [place] [address] Care Team Providers Care Yard Caller Name Role Phone Jossue Bravo MD Primary Care Provide r Reason for Visit * Reason Comments Med Refill Encounter Details Date Type Department Care Team ([facility] st Contact Info) Description 12/11/2022 Refill [facility] MEDICINE 230 [place], [place] [phone] Jsosue Bravo MD [address] [place], [place] [phone] Type 2 diabetes mellitus without complication, unspecified whether long winder tender insulin use ([facility]) Social History Tobacco Use Types Packs/Day Years [...] Description 09/13/2024 1:00 PM EDT Office Visit [facility] MEDICINE [address] [place] [address] Jossue Bravo MD [address] [place] [address] documented as of this encounter Visit Diagnoses Diagnosis Type 2 diabetes mellitus without complication, unspecified whether nursing home insulin use ([facility]) documented in this encounter Additional Health Concerns Assessment Noted Time PHQ-9 Depression Total Score: 0 08/06/19 23 9:30 AM EDT documented as of this encounter Care Teams Yard Caller Relationship Specialty Start Date End Date Jossue Bravo MD [address] [place] [address] PCP - General Internal Medicine 07/07/16 [facility] 04/10/20 documented as of this encounter
--- OUTSIDE RECORDS SUMMARY | 2024-07-12 12:14 | XMS_ITS | Encounter Summary ---
Author Organization [employer] Address 75 [facility] 7t [place] [address] Care Team Providers Care Scratcher Tender Name Role Phone Jossue Bravo MD Primary Care Provide r Encounter Details Date Type Department Care Team (Late st Contact Info) Description 01/16/2023 Abstract [facility] MEDICINE [address] [place] [address] Federica Pak Social History Tobacco Use Types Packs/Day Years [...] Description 09/13/2024 1:00 PM EDT Office Visit [facility] [address] [facility] [place] [address] Jossue Bravo MD [address] [facility] [place] [address] documented as of this encounter Procedures Procedure Name Priority Date/Time Associated Diagnosis Comments COLONOSCOPY Routine 12/03/2016 documented in this encounter Results * Colonoscopy (12/03/2016) Colonoscopy Normal Normal Comment:Repeat in 5 years us Historical Provider HEALTH MAINTENANCE Final Result documented in this encounter Visit Diagnoses Not on filedocumented in this encounter Additional Health Concerns Assessment Noted Time PHQ-9 Depression Total Score: 0 08/06/19 23 9:30 AM EDT documented as of this encounter Care Teams Scratcher Tender Relationship Specialty Start Date End Date Jossue Bravo MD [address] [facility] [place] [address] PCP - General Internal Medicine 07/07/16 [facility] 04/10/20 documented as of this encounter
--- OUTSIDE RECORDS SUMMARY | 2024-07-12 12:14 | XMS_ITS | Encounter Summary ---
Author Organization [employer] Address [address] [place] [address] 7t [place] [address] Care Team Providers Care Dispatcher Service Or Work Name Role Phone Jossue Bravo MD Primary Care Provide r Encounter Details Date Type Department Care Team (Late st Contact Info) Description 05/05/2022 Orders Only [facility] MED & PEDS [address] [place] [address] Fallon Garvin LPN Social History Tobacco Use [...] Description 09/13/2024 1:00 PM EDT Office Visit [facility] MEDICINE [address] [place] [address] Jossue Bravo MD [address] [place], [place] [phone] documented as of this encounter Visit Diagnoses Not on filedocumented in this encounter Care Teams Dispatcher Service Or Work Relationship Specialty Start Date End Date Jossue Bravo MD [address] [place], [place] [phone] PCP - General Internal Medicine 07/07/16 [facility] 04/10/20 documented as of this encounter
--- OUTSIDE RECORDS SUMMARY | 2024-07-12 12:14 | XMS_ITS | Encounter Summary ---
Author Organization [employer] Address [address] [place] [address] 7 [place] [address] Care Team Providers Care Chemical Research Worker Name Role Phone Jossue Bravo MD Primary Care Provide r Reason for Visit * Reason Onset Date Comments Reasonable Accommodataion 02/18/2022 The pt left a voicemail, stating that she is checking on the status of a reasonable accommodation request, from her landlord. I returned her call, and informed her that the request has not been received. She agreed to contact her landlord's office, and will ask them to fax the request to my attention at the [facility] department. Encounter Details Date Type Department Care Team ([facility] st Contact Info) Description 02/18/2022 Telephone [employer] [address] [place], [place] [phone] Jossue Bravo MD 230 [place], [place] [phone] Reasonable Accommodataion (The pt left a voicemail, stating that she is checking on the status of a reasonable accommodation request, from her landlord. I returned her call, and informed her that the request has not been received. She agreed to contact her landlord's office, and will ask them to fax the request to my attention at the [facility] department.) Social History Tobacco Use Types Packs/Day Years [...] Description 09/13/2024 1:00 PM EDT Office Visit [facility] MEDICINE [address] [place] [address] Jossue Bravo MD 230 [place] [address] documented as of this encounter Visit Diagnoses Not on filedocumented in this encounter Care Teams Chemical Research Worker Relationship Specialty Start Date End Date Jossue Bravo MD 230 [place], [place] [phone] PCP - General Internal Medicine 07/07/16 [facility] 04/10/20 documented as of this encounter
--- OUTSIDE RECORDS SUMMARY | 2024-07-12 12:14 | XMS_ITS | Encounter Summary ---
Author Organization [employer] Address [address] 7t [place] [address] Care Team Providers Care Oss Architect Name Role Phone Jossue Bravo MD Primary Care Provide r Reason for Visit * Reason Onset Date Comments chartprep 07/11/2024 Encounter Details Date Type Department Care Team ([facility] st Contact Info) Description 07/11/2024 Telephone [facility] MEDICINE 230 [place], [place] [phone] Jossue Bravo MD 230 [place], [place] [phone] chartprep Social History Tobacco Use Types Packs/Day Years [...] the past 12 months, has t he [employer], gas, oil or water company threatened to [...] encounter Miscellaneous Notes * Telephone Encounter - Jacinta Tavares [place] - 07/11/2024 1:41 PM EDT ..Chart Prep Labs: done Images: done Vaccines due: Tdap Due and Hep B Due and RSV Referrals: Not Applicable Screenings: Colonoscopy and Foot Exam Overdue care gaps: PQ9, GAD7, Disability , and Oral Health documented in this encounter Plan of Treatment Upcoming Encounters Date Type Department Care Team (Late st Contact Info) Description 09/13/2024 1:00 PM EDT Office Visit [facility] MEDICINE [address] [place] [address] Jossue Bravo MD 230 [place], [place] [phone] documented as of this encounter Visit Diagnoses Not on filedocumented in this encounter Additional Health Concerns Assessment Noted Time PHQ-9 Depression Total Score: 3 08/25/19 24 11:39 AM EDT documented as of this encounter Care Teams Oss Architect Relationship Specialty Start Date End Date Jossue Bravo MD 230 [place] [address] PCP - General Internal Medicine 07/07/16 [facility] 04/10/20 documented as of this encounter
--- OUTSIDE RECORDS SUMMARY | 2024-07-12 12:14 | XMS_ITS | Encounter Summary ---
Author Organization [employer] Address [address] [place] [address] 7t [place] [address] Care Team Providers Care Bagging Machine Operator Name Role Phone Jossue Barvo MD Primary Care Provide r Reason for Visit * Reason Comments Med Refill Encounter Details Date Type Department Care Team (Late Contact Info) Description 11/03/2022 Refill [facility] P[facility] [address] [place] [address] Jossue Bravo MD 230 [place] [address] Low back pain, unspecified back pain laterality, [...] Upcoming Encounters Date Type Department Care Team ([facility] Contact Info) Description 09/13/2024 1:00 PM EDT Office Visit [facility] MEDICINE 230 [place], [place] [phone] Jossue Bravo MD [address] [place] [address] documented as of this encounter Visit Diagnoses Diagnosis Low back pain, unspecified back pain laterality, unspecified chronicity, unspecified whether sciatica present documented in this encounter Additional Health Concerns Assessment Noted Time PHQ-9 Depression Total Score: 0 08/06/19 23 9:30 AM EDT documented as of this encounter Care Teams Bagging Machine Operator Relationship Specialty Start Date End Date Jossue Bravo MD 230 [place] [address] PCP - General Internal Medicine 07/07/16 [facility] 04/10/20 documented as of this encounter
--- OUTSIDE RECORDS SUMMARY | 2024-07-12 12:14 | XMS_ITS | Encounter Summary ---
Author Organization [employer] Address [address] [facility] 7t [place] [address] Care Team Providers Care Ux Manager Name Role Phone Jossue Bravo MD Primary Care Provide r Encounter Details Date Type Department Care Team ([facility] st Contact Info) Description 07/24/2023 Orders Only [facility] 230 [place], [place] [phone] Jatinder Ellison MD 230 [place], [place] [phone] Social History Tobacco Use Types Packs/Day Years Used Date Smoking Tobacco: Never Smokeless Tobacco: Never Alcohol Use Standard Drinks/Week Comments Never 0 (1 standard drink = 0.6 oz pur e alcohol) Depression Answer Date Recorded Patient Health Questionnaire-9 [...] 1:00 PM EDT Office Visit [facility] [address] [place] [address] Jossue Bravo MD 230 [place] [address] documented as of this encounter Visit Diagnoses Not on filedocumented in this encounter Additional Health Concerns Assessment Noted Time PHQ-9 Depression Total Score: 0 08/06/19 23 9:30 AM EDT documented as of this encounter Care Teams Ux Manager Relationship Specialty Start Date End Date Jossue Bravo MD 230 [place] [address] PCP - General Internal Medicine 07/07/16 [facility] 04/10/20 documented as of this encounter
--- OUTSIDE RECORDS SUMMARY | 2024-07-12 12:14 | XMS_ITS | Encounter Summary ---
Author Organization [employer] Address [address] [facility] 7t [place] [address] Care Team Providers Care Bell Neck Hammerer Name Role Phone Jossue Bravo MD Primary Care Provide r Encounter Details Date Type Department Care Team ([facility] st Contact Info) Description 07/11/2024 Orders Only [facility] MEDICINE 230 [place], [place] [phone] Av Welsh, PharmD 230 [place] [address] Social History Tobacco Use Types Packs/Day Years [...] Description 09/13/2024 1:00 PM EDT Office Visit [facility] MEDICINE [address] [place] [address] Jossue Bravo MD [address] [place] [address] documented as of this encounter Visit Diagnoses Not on filedocumented in this encounter Additional Health Concerns Assessment Noted Time PHQ-9 Depression Total Score: 3 08/25/19 24 11:39 AM EDT documented as of this encounter Care Teams Bell Neck Hammerer Relationship Specialty Start Date End Date Jossue Bravo MD [address] [place] [address] PCP - General Internal Medicine 07/07/16 [facility] 04/10/20 documented as of this encounter
--- OUTSIDE RECORDS SUMMARY | 2024-07-12 12:14 | XMS_ITS | Encounter Summary ---
Author Organization [employer] Address [address] [facility] 7t [place] [address] Care Team Providers Care Scrap Bunch Maker Name Role Phone Jossue Bravo MD Primary Care Provide r Reason for Visit * Reason Comments Med Refill Encounter Details Date Type Department Care Team (Late st Contact Info) Description 04/27/2023 Refill [facility] MED[facility] 230 [place], [place] [phone] Jossue Bravo MD 230 [place], [place] [phone] Low back pain, unspecified back pain laterality, [...] Description 09/13/2024 1:00 PM EDT Office Visit [facility] MED[facility]INE 230 [place] [address] Jossue Bravo MD 230 [place] [address] documented as of this encounter Visit Diagnoses Diagnosis Low back pain, unspecified back pain laterality, unspecified chronicity, unspecified whether sciatica present documented in this encounter Additional Health Concerns Assessment Noted Time PHQ-9 Depression Total Score: 0 08/06/19 23 9:30 AM EDT documented as of this encounter Care Teams Scrap Bunch Maker Relationship Specialty Start Date End Date Josseu Bravo MD 230 [place] [address] PCP - General Internal Medicine 07/07/16 [facility] 04/10/20 documented as of this encounter
--- OUTSIDE RECORDS SUMMARY | 2024-07-12 12:14 | XMS_ITS | Encounter Summary ---
Author Organization [employer] Address [address] [facility] 7t [place] [address] Care Team Providers Care Securities Dealer Name Role Phone Jossue Bravo MD Primary Care Provide r Reason for Visit * Reason Comments Med Refill Encounter Details Date Type Department Care Team (Late st Contact Info) Description 12/08/2023 Refill [facility] MEDICINE 230 [place], [place] [phone] Jossue Bravo MD 230 [place], [place] [phone] Social History Tobacco Use Types Packs/Day Years [...] 09/13/2024 1:00 PM EDT Office Visit [facility] MEDICINE 230 [place] [address] Jossue Bravo MD 230 [place] [address] documented as of this encounter Visit Diagnoses Not on filedocumented in this encounter Additional Health Concerns Assessment Noted Time PHQ-9 Depression Total Score: 3 08/25/19 24 11:39 AM EDT documented as of this encounter Care Teams Securities Dealer Relationship Specialty Start Date End Date Jossue Bravo MD 230 [place] [address] PCP - General Internal Medicine 07/07/16 [facility] 04/10/20 documented as of this encounter
--- OUTSIDE RECORDS SUMMARY | 2024-07-12 12:14 | XMS_ITS | Encounter Summary ---
Author Organization [employer] Address [address] [facility] 7t [place] [address] Care Team Providers Care Bank Guard Name Role Phone Jossue Bravo MD Primary Care Provide r Encounter Details Date Type Department Care Team ([facility] Contact Info) Description 07/07/2024 Orders Only [facility] 230 [place], [place] [phone] ProviderJuan MD Social History Tobacco Use Types Packs/Day Years [...] Description 09/13/2024 1:00 PM EDT Office Visit [facility] MEDICINE 230 [place] [address] Jossue Bravo MD 230 [place] [address] documented as of this encounter Procedures Procedure Name Priority Date/Time Associated Diagnosis Comments CT CHEST ANGIO W AND WO IV CONTRAST Routine 07/06/2024 7:01 AM EDT documented in this encounter Results * CT CHEST ANGIO W AND WO IV CONTRAST (07/06/2024 7:01 AM EDT) Anatomical Region Laterality Modality Computed Tomogra phy us Historical Provider MD BENAVIDES CT PROCEDURES Final R esult documented in this encounter Visit Diagnoses Not on filedocumented in this encounter Additional Health Concerns Assessment Noted Time PHQ-9 Depression Total Score: 3 08/25/19 24 11:39 AM EDT documented as of this encounter Care Teams Bank Guard Relationship Specialty Start Date End Date Jossue Bravo MD 230 [place] [address] PCP - General Internal Medicine 07/07/16 [facility] 04/10/20 documented as of this encounter
--- OUTSIDE RECORDS SUMMARY | 2024-07-12 12:14 | XMS_ITS | Encounter Summary ---
Author Organization [employer] Address [address] [facility] 7t [place] [address] Care Team Providers Care Right Of Way Clearer Name Role Phone Jossue Bravo MD Primary Care Provide r Reason for Visit * Reason Comments Med Refill Encounter Details Date Type Department Care Team (Late st Contact Info) Description 12/05/2023 Refill [facility] MEDICINE 230 [place], [place] [phone] Jossue Bravo MD 230 [place], [place] [phone] Social History Tobacco Use Types Packs/Day Years [...] 1:00 PM EDT Office Visit [facility] MEDICINE 230 [place] [address] Jossue Bravo MD 230 [place] [address] documented as of this encounter Visit Diagnoses Not on filedocumented in this encounter Additional Health Concerns Assessment Noted Time PHQ-9 Depression Total Score: 3 08/25/19 24 11:39 AM EDT documented as of this encounter Care Teams Right Of Way Clearer Relationship Specialty Start Date End Date Jossue Bravo MD 230 [place] [address] PCP - General Internal Medicine 07/07/16 [facility] 04/10/20 documented as of this encounter
--- OUTSIDE RECORDS SUMMARY | 2024-07-12 12:14 | XMS_ITS | Encounter Summary ---
Author Organization [employer] Address [address] [facility] 7t [place] [address] Care Team Providers Care Title Clerk Name Role Phone Jossue Bravo MD Primary Care Provide r Reason for Visit * Reason Onset Date Comments Nurse Triage 07/12/2024 Encounter Details Date Type Department Care Team ([facility] st Contact Info) Description 07/12/2024 Telephone [facility] MEDICINE 230 [place], [place] [phone] Flor Greene, RN 230 [place], [place] [phone] Nurse Triage Social History Tobacco Use Types [...] encounter Miscellaneous Notes * Telephone Encounter - Flor Greene RN - 07/12/2024 10:09 AM EDT Assessment: Patient presents to [employer] with granddaughter c/o dizziness. Started when she was walking from her car into the building for her appt with PCP. Pt with pneumonia. Currently taking prednisone. Pt coughing and SOB. Reports that she thought she might fall twice on her way from the car. They took the elevator up, not the stairs. Vitals taken. Pt reports she is diabetic but not on inulin and well controlled. BG WNL this morningwhen VNA took it and had breakfast. Pt coughing frequently and spitting sputum into emesis bag. VS as follows (if applicable): HR 93 regular rate and rhythm Resp 20 BP 148/82 left Arm; Device: Manual Cuff Size: regular O2 sat 95-96 % on room air Vitals stable for being discharged with pneumonia yesterday Allergies Allergen Reactions Amlodipine Dizziness Hydrochlorothiazide-Triamterene Verapamil Other reaction(s): constipation Current Outpatient Medications Medication Sig Dispense Refill Acetaminophen Extra Strength 500 MG tablet TAKE 1 TABLET BY MOUTH EVERY 8 HOURS NEEDED 60 tablet3 Advair HFA 230-21 MCG/ACT inhaler INHALE 2 PUFF BY MOUTH two (2) times a day. rinse mouth and throat after use albuterol (2.5 MG/3ML) 0.083% nebulizer solution INHALE THE CONTENT OF 1 VIAL (3mls) VIA NEBULIZER EVERY 4 TO 6 HOURS NEEDED FOR SHORTNESS OF BREATH OR FOR WHEEZING albuterol (Ventolin HFA) 108 (90 Base) MCG/ACT inhaler INHALE 2 PUFF BY MOUTH EVERY 4 TO 6 HOURS ASNEEDED 18 g 0 Alcohol Swabs (Alcohol Pads) 70 % pads USE TO TEST FINGER STICK BLOOD SUGAR two (2) times a day 100each 11 Aspirin Low Dose 81 MG EC tablet TAKE 1 TABLET BY MOUTH ONCE DAILY 90 tablet 6 atorvastatin (Lipitor) 40 MG tablet TAKE 1 TABLET BY MOUTH ONCE DAILY AT BEDTIME 30 tablet 11 Blood Glucose Monitoring Suppl (FreeStyle Lite) device Inject 1 each under the skin 2 times daily. 1 each 0 Blood Pressure kit Use twice a day 1 kit 0 cholecalciferol VITAMIN D (Vitamin D-3) 50 MCG (2000 UT) tablet TAKE 1 TABLET BY MOUTH ONCE DAILY 90 tablet 6 Diclofenac Sodium 1 % gel Apply to affected area bid prn 100 g 1 docusate sodium (Colace) 100 MG capsule TAKE 1 CAPSULE BY MOUTH two (2) times a day 180 capsule 3 FreeStyle lancets USE TO TEST FINGER STICK BLOOD SUGAR two (2) times a day 100 each 3 furosemide (Lasix) 20 MG tablet Take 20 mg by mouth Once per day. glucose blood (FREESTYLE LITE) test strip USE TO TEST FINGER STICK BLOOD SUGAR two (2) times a day DIRECTED 50 strip 11 ipratropium (Atrovent) 0.02 % nebulizer solution levothyroxine (Synthroid, Levoxyl) 112 MCG tablet TAKE 1 TABLET BY MOUTH ONCE DAILY 30 tablet 11 loratadine (Claritin) 10 MG tablet TAKE 1 TABLET BY MOUTH ONCE DAILY IN THE MORNING 90 tablet 1 losartan (Cozaar) 100 MG tablet Take 1 tablet (100 mg) by mouth Once per day. 90 tablet 3 meclizine (Antivert) 25 MG tablet Take 1 tablet by mouth if needed in the morning, at noon, and at bedtime for dizziness. metFORMIN XR (Glucophage-XR) 500 MG 24 hr tablet TAKE 1 TABLET BY MOUTH EVERY EVENING WITH DINNER 90 tablet 3 montelukast (Singulair) 10 MG tablet TAKE 1 TABLET BY MOUTH EVERY EVENING 30 tablet 11 nystatin (Nyamyc) 930280 UNIT/GM powder APPLY TO THE AFFECTED AREA TOPICALLY two (2) times a day 60g 6 omeprazole (PriLOSEC) [address] capsule TAKE 1 CAPSULE BY MOUTH ONCE DAILY IN THE MORNING. 90 capsule 3 OXcarbazepine (Trileptal) 600 MG tablet TAKE 1 TABLET BY MOUTH two (2) times a day 60 tablet 11 polyethylene glycol, PEG, 3350 (Miralax) 17 g packet take 1 packet by oral route every day mixed with 8 oz. water, juice, soda, coffee or tea as needed for Constipation 30 packet 1 predniSONE (Deltasone) 20 MG tablet No current facility-administered medications for this visit. Patient Active Problem List Diagnosis Date Noted Primary hyperparathyroidism ([facility]) 04/14/2024 Stage 3b chronic kidney disease ([facility]) 04/14/2024 Hospital discharge follow-up 03/08/2024 Trigger ring finger of left hand 12/03/2023 Illiterate 06/25/2023 Seizures ([facility]) 06/25/2023 Right hand pain 11/06/2022 Left foot pain 11/06/2022 Occipital headache 11/06/2022 Chronic idiopathic constipation 10/02/2022 Preventative health care 08/05/2022 Umbilical hernia without obstruction and without gangrene 08/05/2022 Chronic right shoulder pain 08/05/2022 Chronic heart failure with preserved ejection fraction ([facility]) 07/17/2022 Otosclerosis 06/22/2018 Moderate persistent asthma without complication 04/21/2017 Tubular adenoma of colon 01/15/2017 Essential hypertension 12/12/2014 Mixed hyperlipidemia 12/12/2014 Alkaline phosphatase raised 11/10/2011 Anxiety 11/10/2011 Depressive disorder 11/10/2011 Hypothyroidism 11/10/2011 Obesity, morbid ([facility]) 11/10/2011 Obstructive sleep apnea syndrome 11/10/2011 Seizure disorder ([facility]) 11/10/2011 Sensorineural hearing loss, bilateral 11/10/2011 Type 2 diabetes mellitus with stage 2 chronic kidney disease ([facility]) ([facility]) 11/10/2011 Gastroesophageal reflux disease without esophagitis 08/05/2022 Plan of care: Room immediately. Awaiting provider evaluation. Flor Greene RN documented in this encounter Plan of Treatment Upcoming Encounters Date Type Department Care Team (Late st Contact Info) Description 09/13/2024 1:00 PM EDT Office Visit [facility] MEDICINE [address] [place] [address] Jossue Bravo MD [address] [place] [address] documented as of this encounter Visit Diagnoses Not on filedocumented in this encounter Additional Health Concerns Assessment Noted Time PHQ-9 Depression Total Score: 3 08/25/19 24 11:39 AM EDT documented as of this encounter Care Teams Title Clerk Relationship Specialty Start Date End Date Jossue Bravo MD [address] [place] [address] PCP - General Internal Medicine 07/07/16 [facility] 04/10/20 documented as of this encounter
--- OUTSIDE RECORDS SUMMARY | 2024-07-12 12:14 | XMS_ITS | Encounter Summary ---
Author Organization [employer] Address [address] [facility] 7t [place] [address] Care Team Providers Care Log Yard Derrick Operator Name Role Phone Jossue Bravo MD Primary Care Provide r Reason for Visit * Reason Comments Med Refill Encounter Details Date Type Department Care Team (Late st Contact Info) Description 01/30/2024 Refill [facility] MEDICINE 230 [place], [place] [phone] Jossue Bravo MD 230 [place], [place] [phone] Social History Tobacco Use Types Packs/Day Years [...] 1:00 PM EDT Office Visit [facility] MEDICINE [address] [place] [address] Jossue Bravo MD [address] [place] [address] documented as of this encounter Visit Diagnoses Not on filedocumented in this encounter Additional Health Concerns Assessment Noted Time PHQ-9 Depression Total Score: 3 08/25/19 24 11:39 AM EDT documented as of this encounter Care Teams Log Yard Derrick Operator Relationship Specialty Start Date End Date Jossue Bravo MD 230 [place] [address] PCP - General Internal Medicine 07/07/16 [facility] 04/10/20 documented as of this encounter
--- OUTSIDE RECORDS SUMMARY | 2024-07-12 12:15 | XMS_ITS | Encounter Summary ---
Author Organization [employer] Address [address] [facility] 7t [place] [address] Care Team Providers Care Net Programmer Name Role Phone Jossue Bravo MD Primary Care Provide r Reason for Visit * Reason Onset Date Comments Durable Medical Equipment 04/24/2023 Encounter Details Date Type Department Care Team ([facility] st Contact Info) Description 04/24/2023 Telephone [facility] MEDICINE 230 [place], [place] [phone] Jossue Bravo MD 230 [place], [place] [phone] Durable Medical Equipment Social History Tobacco Use Types Packs/Day Years [...] encounter Miscellaneous Notes * Telephone Encounter - Rosalinda Reynolds RN - 04/29/2023 9:34 AM EST Sent glucometer per PCP. * Telephone Encounter - Sandhya Gray - 04/24/2023 4:04 PM EST Tc from [facility] requesting a new blood glucose monitor. States current one is not working properly. documented in this encounter Plan of Treatment Upcoming Encounters Date Type Department Care Team (Late st Contact Info) Description 09/13/2024 1:00 PM EDT Office Visit [facility] MEDICINE 230 [place] [address] Jossue Bravo MD [address] [place] [address] documented as of this encounter Visit Diagnoses Diagnosis Type 2 diabetes mellitus without complication, without long-term current use of insulin ([facility]) documented in this encounter Additional Health Concerns Assessment Noted Time PHQ-9 Depression Total Score: 0 08/06/19 23 9:30 AM EDT documented as of this encounter Care Teams Net Programmer Relationship Specialty Start Date End Date Jossue Bravo MD 230 [place] [address] PCP - General Internal Medicine 07/07/16 [facility] 04/10/20 documented as of this encounter
[2024-07-12 12:34] LABS: Anion Gap 17 (12-20); Blood Urea Nitrogen 15 mg/dL (9-16); Calcium 10.1 mg/dL (8.4-10.2); Carbon Dioxide 26 mmol/L (22-29); Chloride 107 mmol/L (96-108); Creatinine Urine 24.51 mg/dL; Estimated Glomerular Filt Rate > 60; Glucose Random 142 mg/dL (60-115); Microalbumin Urine < 5.0 mg/L; Potassium 3.9 mmol/L (3.3-5.1); Sodium 146 mmol/L (135-145)
== END 2024-07-12 10:50 | disposition home or self-care (01) ==
LOC: HO.HHCL 10:49
PROVIDERS: Visit Provider Internal Medicine
DX: I10 Essential (primary) hypertension (principal); N18.2 Chronic kidney disease, stage 2 (mild); E11.22 Type 2 diabetes mellitus with diabetic chronic kidney disease; I50.32 Chronic diastolic (congestive) heart failure
CPT/HCPCS: 36415; 80048; 82043; 82570; 85025

== ENCOUNTER 2024-09-14 08:59 | Outpatient (REF) | payer OTHER, SELFPAY ==
--- OUTSIDE RECORDS SUMMARY | 2024-09-14 09:13 | XMS_ITS | Clinical Summary ---
Author Organization [facility], Address [address] [place] [address] [place] [address] Phone Care Team Providers Care Director Of Claims Name Role Phone Unavailable Primary Care Provider Unavailabl e Allergies Active Allergy Reactions Criticality Noted Date Comments Amlodipine 01/20/2021 Hydrochlorothiazide-Triamterene 04/2022 Verapamil 01/20/2021 Medications tiotropium (SPIRIVA) 18 MCG per inhalation capsule Place 1 capsule into inhaler and inhale 1 (one) time each day Active fluticasone-donato meterol (ADVAIR DISKUS) 250-50 MCG/DOSE diskus inhaler Inhale 1 puff 2 (two) times a day Rinse mouth with water after use to reduce aftertaste and incidence of candidiasis. Do not swallow. Active albuterol HFA (PROVENTIL HFA;VENTOLIN HFA) 108 (90 Base) MCG/ACT inhaler Inhale 2 puffs every 6 (six) hours if needed for wheezing Active loratadine (CLARITIN) 10 MG tablet Take 10 mg by mouth 1 (one) time each day Active pantoprazole (PROTONIX) 40 MG EC tablet Take 40 mg by mouth 1 (one) time each day before breakfast Do not crush, chew, or split. Active aspirin (ST PAYTON) 81 MG EC tablet Take 81 mg by mouth 1 (one) time each day Active acetaminophen (TYLENOL) 500 MG tablet Take by mouth every 6 (six) hours if needed for mild pain Active atorvastatin (LIPITOR) 40 MG tablet Take 40 mg by mouth 1 (one) time each day Active nystatin-triamc inolone (MYCOLOG II) ointment Apply topically 2 (two) times a day Active losartan (COZAAR) 100 MG tablet Take 100 mg by mouth 1 (one) time each day Active montelukast (SINGULAIR) 10 MG tablet Take 10 mg by mouth every night Active OXcarbazepine (TRILEPTAL) 600 MG tablet Take 600 mg by mouth 2 (two) times a day Active levothyroxine (Synthroid) 112 MCG tablet Take 112 mcg by mouth 1 (one) time each day Active furosemide (LASIX) 20 MG tablet Take 20 mg by mouth 2 (two) times a day Active metFORMIN (GLUCOPHAGE) 500 MG tablet Take 500 mg by mouth 2 (two) times a day with meals Active docusate sodium (COLACE) 100 MG capsule Take 100 mg by mouth 2 (two) times a day Active cholecalciferol (VITAMIN D-3) 50 MCG (1999 UT) capsule Take 2,000 Units by mouth 1 (one) time each day 1 Active metFORMIN XR (GLUCOPHAGE-XR) 500 MG 24 hr tablet Take 500 mg by mouth 1 (one) time each day 1 Active Nyamyc powder APPLY TO THE AFFECTED AREA TOPICALLY two (2) times a day 1 Active omeprazole (PriLOSEC) [address] capsule TAKE ONE CAPSULE BY MOUTH two (2) times a day 1 Active polyethylene glycol (GLYCOLAX) 17 g packet take 1 packet by oral route every day mixed with 8 oz. water, juice, soda, coffee or tea as needed for Constipation 2 Active amoxicillin (AMOXIL) 500 MG capsule TAKE 1 CAPSULE BY MOUTH EVERY 6 HOURS FOR 7 DAYS 3 Active DULCOLAX 5 MG EC tablet TAKE 2 TABLETS BY MOUTH BEFORE TAKE liquid prep 3 Active D3 50 MCG (1999 UT) tablet Take 2,000 Units by mouth 1 (one) time each day 3 Active omeprazole (PriLOSEC) [address] capsule 3 Active GaviLyte-G 236 g solution Take 240 mL by mouth once for 1 dose. Take 4L by mouth once for one dose. May substitue any PEG. Starting at 6PM the night before your procedure drink 1 8oz glasses at your own pace until rectals run clear. 3 Active potassium chloride (KLOR-CON M10) 10 MEQ CR tablet TAKE 1 TABLET BY MOUTH ONCE DAILY IN THE MORNING. do not crush or chew 3 Active Active Problems Problem Noted Date Diagnosed Date Diabetes mellitus without me ntion of complication, type II or unspecified type, not stated as uncontrolled 01/20/2021 Essential hypertension 01/20/2021 Mixed hyperlipidemia 01/20/2021 Hypothyroidism 01/20/2021 Resolved Problems Problem Noted Date Diagnosed Date Resolved Date Gastroesophageal reflux disease 01/20/2021 01/20/2021 Social History Tobacco Use Types Packs/Day Years Used Date Smoking Tobacco: Never Smokeless Tobacco: Never Alcohol Use Standard Drinks/Week Comments Not Currently 0 (1 standard drink = 0.6 oz pur e alcohol) Comments Unknown Sex and Gender Information Value Date Recorded Sex Assigned at Not on file Legal Sex Female 9:43 PM EDT Gender Identity Not on file Sexual Orientation Not on file Last Filed Vital Signs Vital Sign Reading Time Taken Comments Blood Pressure 138/66 07/20/2023 3:26 PM EDT Pulse - - Temperature - - Respiratory Rate - - Oxygen Saturation - - Inhaled Oxygen Concentration - - Weight 83.9 kg (185 lb) 01/22/2021 10:29 AM EST Height - - Body Mass Index - - Plan of Treatment Health Maintenance Due Date Last Done Comments Breast Cancer Screening 1955 Colorectal Cancer Screening: Annual FOBT 2002 Colorectal Cancer Screening: Colonoscopy 2002 Colorectal Cancer Screening: Sigmoidoscopy 2002 Diabetes: Ophthalmology Exam 01/20/2021 Diabetes: Pedal Pulse Checked 01/20/2021 Diabetes: Sensory Foot Exam 01/20/2021 Diabetes: Visual Foot Exam 01/20/2021 Diabetes: Hemoglobin A1C 08/26/2023 05/26/2023, 09/0 08/2022 Influenza Vaccine (#1) 2024 9, 11/19/2017, 01/15/2017, Additional history exists Pneumococcal Vaccine: 50+ Years Completed 12/17/2021, 04/30/2011 Hepatitis B Vaccine Aged Out No longe r eligible based on patient's age to complete this topic Insurance Medicaid [facility] Care Dual SNP ([id number])
--- OUTSIDE RECORDS SUMMARY | 2024-09-14 09:13 | XMS_ITS | Encounter Summary ---
Author Organization [employer] Address [address] [facility] [address] [place] [address] Care Team Providers Care Diver Pumper Name Role Phone Jossue Bravo MD Primary Care Provide r Encounter Details Date Type Department Care Team ([facility] st Contact Info) Description 07/24/2023 Orders Only [facility] [address] [place], [place] [id number] Jatinder Ellison MD [address] [place], [place] [phone] Social History Tobacco Use Types Packs/Day Years [...] as of this encounter Plan of Treatment Not on file documented as of this encounter Visit Diagnoses Not on filedocumented in this encounter Additional Health Concerns Assessment Noted Time PHQ-9 Depression Total Score: 0 08/06/19 23 9:30 AM EDT documented as of this encounter Care Teams Diver Pumper Relationship Specialty Start Date End Date Jossue Bravo MD [address] [place] [id number] PCP - General Internal Medicine 07/07/16 [facility] 04/10/20 documented as of this encounter
--- OUTSIDE RECORDS SUMMARY | 2024-09-14 09:14 | XMS_ITS | Clinical Summary ---
Author Organization [address] [place] [address] [place] [phone] Phone Care Team Providers Care Can Tender Name Role Phone Jeevan Schneider MD Primary Care Provi benedict Allergies Active Allergy Reactions Criticality Noted Date Comments Amlodipine Dizziness 04/13/2024 Triamterene-Hydrochloroth iazid 01/01/2023 Verapamil 04/02/2010 Other reaction(s): constipation Medications albuterol 2.5 mg /3 mL (0.083 %) nebulizer solution Inhale 3 mL (2.5 mg total) by mouth. 2 Active albuterol HFA (PROAIR HFA ; PROVENTIL HFA ; VENTOLIN HFA) 90 mcg/actuation inhaler Inhale 2 puffs by mouth. 2 Active atorvastatin (LIPITOR) 40 mg tablet Take 1 tablet (40 mg total) by mouth 1 (one) time each day. Active aspirin 81 mg EC tablet Take 1 tablet (81 mg total) by mouth. Active bisacodyL (DULCOLAX) 5 mg EC tablet Take 2 tablets by mouth right before your first dose of liquid prep. 3 Active cholecalciferol (VITAMIN D-3) 50 mcg (2,000 unit) capsule Take 1 capsule (2,000 Units total) by mouth 1 (one) time each day. 3 Active levothyroxine (SYNTHROID, LEVOTHROID) 112 mcg tablet Take 1 tablet (112 mcg total) by mouth. Active loratadine (CLARITIN) 10 mg tablet Take 1 tablet (10 mg total) by mouth. Active losartan (COZAAR) 100 mg tablet Take 1 tablet (100 mg total) by mouth. Active meclizine (ANTIVERT) 25 mg tablet Take 1 tablet (25 mg total) by mouth 3 (three) times a day if needed. Active metFORMIN (GLUCOPHAGE) 500 mg tablet Take 1 tablet (500 mg total) by mouth. Active montelukast (SINGULAIR) 10 mg tablet Take 1 tablet (10 mg total) by mouth at bedtime. Active OXcarbazepine (TRILEPTAL) 600 mg tablet Take 1 tablet (600 mg total) by mouth 2 (two) times a day. Active polyethylene glycol (GoLYTELY) 236-22.74-6.74 -5.86 gram solution Take 240 mL by mouth. 3 Active furosemide (LASIX) 20 mg tabletIndicatio ns:Chronic diastolic (congestive) heart failure (CMS/HCC V24, CMS/[facility] V28) TAKE 1 TABLET BY MOUTH ONCE DAILY 90 tablet 1 5 Active fluticasone propion-salmete roL (ADVAIR HFA) 230-21 mcg/actuation inhaler INHALE 2 PUFF BY MOUTH two (2) times a day. rinse mouth and throat after use 12 g 11 5 Active ipratropium (ATROVENT) 0.02 % nebulizer solutionIndicat ions:Exacerbati on of asthma, unspecified asthma severity, unspecified whether persistent Take 2.5 mL (0.5 mg total) by nebulization 4 (four) times a day. 300 mL 5 Active clotrimazole-be tamethasone (LOTRISONE) 1-0.05 % cream Apply topically 2 (two) times a day for 5 days. 30 g 5 025 Active Problems Problem Noted Date Diagnosed Date Asthma exacerbation 07/07/2024 Acute bronchitis and bronchiolitis 07/06/2024 (HFpEF) heart failure with p reserved ejection fraction (CMS/HCC V24, CMS/HCC V28) 10/15/2021 Overview (12/18/2023): Last Assessment & Plan: The patient has a history of heart failure with preserved ejection fraction. She is currently on furosemide 20 mg orally daily. The patient states that she takes an additional dose of furosemide if she notices any weight gain. On today's visit, she denies any lower extremity edema. She was recently evaluated by her panman who is concerned about the possibility of overdiuresis given the additional doses of furosemide that the patient takes when she notices weight gain. During today's visit, we discussed the role of diuretic therapy in the management of HFpEF. The patient is hesitant to stop her diuretics completely. We did agree to continue with furosemide at a dose of 20 mg orally daily. The patient will contact our office if she notices any weight gain or lower extremity edema prior to the use of any additional doses of furosemide. Depending on the degree of weight gain and the degree of lower extremity edema, then we will decide if the patient is to take any additional doses of furosemide. In the meantime, we will order an echocardiogram to reevaluate her LVEF and LV diastolic function. Will also use the echocardiogram to evaluate her RV function and rule out any significant valvular disease. Will also order new laboratory testing that would include a comprehensive metabolic panel and magnesium level. ASCUS of cervix with negative high risk HPV 11/01 Overview (12/18/2023): 2013- neg pap smear 2018- ASCUS with neg HPV 10/2020- repeat pap smear SOB (shortness of breath) 07/12/2020 Overview (12/18/2023): Last Assessment & Plan: The patient continues to experience shortness of breath with exertion. She refers that her symptoms have improved slightly since her last visit to our office but they are still present. Echocardiogram done recently showed a normal LV function without any significant valvular disease. She does have a history of COPD and has been seen by the [place] pulmonology service in the past. We will attempt to help the patient schedule an appointment with the pulmonology team. Lab test negative for COVID-19 virus 06/29/2020 Osteopenia 07/22/2018 Allergic rhinitis 05/05/2017 Anxiety 05/05/2017 Asthma 05/05/2017 Colon polyps 05/05/2017 Diabetes mellitus type 2, un complicated (CMS/[facility] V24, CMS/[facility] V28) 05/05/2017 GERD (gastroesophageal reflux disease) 8 Hyperlipidemia 05/05/2017 Overview (12/18/2023): Last Assessment & Plan: The patient has a history of hyperlipidemia. She is currently on simvastatin. Last lipid panel showed an LDL of 44. We will continue her current therapy. Hypertension 05/05/2017 Overview (12/18/2023): Last Assessment & Plan: The patient has a history of arterial hypertension. The patient's blood pressure today was noted to be well controlled. We'll continue the current antihypertensive medication regimen. Hypothyroid 05/05/2017 Seizure disorder ([facility] V24, [facility] V28) 07/2017 Tinea corporis 05/05/2017 Vitamin D deficiency 05/05/2017 Encounters Date Type Department Care Team Description 08/19/2024 Telephone Obstetrics & Gynecology - [address] [phone] Stephanie Zaragoza CNM Medication Problem 08/16/2024 10:30 AM EDT [facility] [address] [place] [phone] Stephanie Zaragoza CNM Encounter for gynecological examination without abnormal finding (Primary Dx); Vitamin D deficiency; Encounter for screening mammogram for high-risk patient; Class 2 severe obesity due to excess calories with serious comorbidity and body mass index (BMI) of 35.0 to 35.9 in adult ([facility] V24, [facility] V28); Encounter for screening mammogram for malignant neoplasm of breast 07/21/2024 1:45 PM EDT Office Visit Orthopedic Surgery - [place] [address] [phone] Juan Dominguez DPM Controlled type 2 diabetes with neuropathy ([facility] V24, [facility] V28) (Primary Dx); Ingrown right big toenail; Difficulty walking; Arthritis of both feet; Dermatophytosis, nail 07/06/2024 10:52 AM EDT - 07/07/2024 2:36 PM EDT Hospital Encounter [facility] [address] [place] [phone] Noah Vernon MD Bukalo, Nermina, MD Santoyo-Pach eco, Omar D, MD Severe asthma with exacerbation, unspecified whether persistent (Primary Dx); Respiratory distress; Exacerbation of asthma, unspecified asthma severity, unspecified whether persistent Discharge Disposition: Home or Self Care 06/17/2024 9:45 AM EDT Office Visit Pulmonolgy - [place] [address] [facility] [address] [place] [phone] Aleksandr Mann MD Moderate persistent asthma, unspecified whether complicated (Primary Dx); CORBIN (obstructive sleep apnea) from Last 3 Months Immunizations Name Administration Dates Next Due Hep B, Unspecified 04/27/2015 Influenza Quadravalent, 0.5m l (Fluzone High-dose) 65yo and older 12/17/2021,12/13/2020,12/27/2019 Influenza Quadrivalent, 0.5m l, preservative free (Fluarix; FluLaval; Fluzone) ages 6mo and older (Afluria) 3yo and older 11/25/2018,01/15/2017 Influenza Quadrivalent, with preservative (Fluzone; Afluria) 6mo and older 11/19/2017,12/12/2014 Influenza Split 12/09/2012,11/10/2011 Influenza trivalent, 0.5mL ( Fluzone High-dose) 65yo and older 12/03/2023 Influenza trivalent, with pr eservative (Fluzone; Afluria) 6mo and older 11/24/2013,04/30/2011 Pneumococcal conjugate 20 va lent (Prevnar 20, PCV 20) 2mo and older 12/17/2021 Pneumococcal polysaccharide 23 valent (Pneumovax 23) 2yo and older 04/30/2011 Td Tetanus diptheria (Tdvax) 7yo and older 02/09,12/06/2007 Zoster Live 03/09/2014 Zoster recombinant (Shingrix ) 19yo and older 04/06/2020,12/23/2019 Surgical History Surgery Date Site/Laterality Comments COLONOSCOPY 2017 PROCEDURE: HISTORICAL COLONOSCOPY; COMMENT: polyps CHOLECYSTECTOMY PROCEDURE: HISTORICAL CHOLECYSTECTOMY TUBAL LIGATION PROCEDURE: HISTORICAL TUBAL LIGATION CRANIOTOMY 03/02/2017 - 03/01/2018 Left bening tumor removal Medical History Medical History Date Comments Asthma DX:Asthma Anxiety 05/05/2017 DX:Anxiety Colon polyps 05/05/2017 DX:Colon polyps Morbid obesity with BMI of 4 0.0-44.9, adult ([facility] V24, [facility] V28) 05/05/2017 DX:Morbid obesity wit h BMI of 40.0-44.9, adult ([facility]) Hyperlipidemia 05/05/2017 DX:Hyperlipidemi a Diabetes mellitus type 2, uncomplicated ([facility] V24, [facility] V28) 05/05/2017 DX:Diabetes mellitus type 2, uncomplicated ([facility]) Seizure disorder ([facility] V2 4, [facility] V28) 05/05/2017 DX:Seizure disorder ([facility]) Hypothyroid 05/05/2017 DX:Hypothyroid Allergic rhinitis 05/05/2017 DX:Allergic rh initis Hypertension 05/05/2017 DX:Hypertension GERD (gastroesophageal reflux disease) 8 DX:GERD (gastroesophageal reflux disease) Tinea corporis 05/05/2017 DX:Tinea corpori s Vitamin D deficiency 05/05/2017 DX:Vitamin D deficiency H/O bone density study 07/12/2018 DX:H/O stevenson ne density study; COMMENT: osteopenia CORBIN on CPAP DX:CORBIN on CPAP Acute bronchitis and bronchiolitis 07/06/2024 Family History Medical History Relation Name Comments No Known Problems Brother No Known Problems Father No Known Problems Mother No Known Problems Sister Breast cancer Neg Hx Colon cancer Neg Hx Ovarian cancer Neg Hx Prostate cancer Neg Hx Relation Name Status Comments Brother Father Mother Sister Social History Tobacco Use Types Packs/Day Years Used Date Smoking Tobacco: Never Smokeless Tobacco: Never Tobacco Cessation:Counseling Given: Not Answered Alcohol Use Standard Drinks/Week Comments Yes 5 (1 standard drink = 0.6 oz pur e alcohol) Interpersonal Safety Answer Date Record ed Physical Abuse 07/06/2024 Verbal Abuse 07/06/2024 Comments Unknown Sex and Gender Information Value Date Recorded Sex Assigned at Female 08/18/2024 3:06 PM EDT Legal Sex Female 5:21 PM EST Gender Identity Female 08/18/2024 3:06 PM EDT Sexual Orientation Straight 08/18/2024 3: 06 PM EDT Obstetrics History Last Filed Vital Signs Vital Sign Reading Time Taken Comments Blood Pressure 126/58 08/16/2024 11:00 AM EDT Pulse 62 08/16/2024 11:00 AM EDT Temperature 36.5 C (97.7 F) 07/07/2024 8:23 AM EDT Respiratory Rate 16 08/16/2024 11:00 AM EDT Oxygen Saturation 100% 07/07/2024 8:23 AM EDT Inhaled Oxygen Concentration - - Weight 74.4 kg (164 lb) 08/16/2024 11:00 AM EDT Height 144.8 cm (4' 9 ) 08/16/2024 11:00 AM EDT Body Mass Index 35.49 08/16/2024 11:00 AM EDT Plan of Treatment Upcoming Encounters Date Type Department Care Team (Late st Contact Info) Description 09/26/2024 10:00 AM EDT Office Visit Orthopedic Surgery - [place] 250 175 [facility] [address] [place] [phone] Juan Dominguez DPM [address] [address] 01/10/2025 1:30 PM EST Office Visit [facility] [address] [place] [address] [address] [place] [phone] Ciro Mccallum MD [address] [place] [address] [facility] [address] [place] [address] 01/12/2025 9:30 AM EST Ancillary Procedure Pulmonolgy [facility] 175 [facility] 200 [place] [phone] 01/12/2025 10:45 AM EST [facility] [address] [phone] Aleksandr Mann MD [address] [address] Health Maintenance Due Date Last Done Comments Diabetes: Annual Foot Exam 1965 Diabetes: Annual Retina Eye Exam 1965 RSV Immunization Adult Patients (1 - Risk 60-74 years 1-dose series) 2013 Hepatitis B Vaccines (2 of 3 - 19+ 3-dose series) 05/25/2015 04/27/2015 Cholesterol Screening (Lipid Panel) 02/07/2022 Diabetes: Annual Urine Albumin-Creatinine Ratio (uACR) 02/07/2022 Hepatitis C Screening 02/07/2022 Medicare Annual Wellness Visit 02/07/2022 Social Influencers of Health Screening 02/07/2022 COVID-19 Vaccine ( season) 2024 12/03/2023, 12/17/2021, 03/15/2021, Additional history exists Depression Screening 08/24/2024 08/25/2023 Influenza Vaccine (#1) 2024 , 12/17/2021, 12/13/2020, Additional history exists Diabetes: Blood Sugar Control Test (HGBA1C) 01/12/2025 07/12/2024, 03/08/2024, 12/03/2023 Falls Risk Assessment 07/07/2025 07/07/2024 Diabetes: Annual GFR (Glomerular Filtration Rate) 07/12/2025 07/12/2024, 07/07/2024, 07/06/2024, Additional history exists Hypertension/CHF/CAD Annual BMP Blood Test 07/12/2025 07/12/2024, 07/07/2024, 07/06/2024, Additional history exists Breast Cancer Screening 12/09/2025 12/10/19 24, 12/09/2022, 12/06/2021, Additional history exists DTaP,Tdap,and Td Vaccines (3 - Td or Tdap) 02/10/2028 02/09/2018, 12/06/2007 Osteoporosis Screening (Bone Density Screening) 07/12/2028 07/12/2018 Colorectal Cancer Screening: Colonoscopy 01/15/2031 01/15/2021 Zoster Vaccines Completed 04/06/2020, 12/01, 03/09/2014 Pneumococcal Vaccine: 50+ Years Completed 12/17/2021, 04/30/2011 HIB Vaccines Aged Out No longer eligi [...] on patient's age to complete this topic MMR Vaccines Aged Out No longer eligi ble based on patient's age to complete this topic Meningococcal ACWY Vaccine Aged Out N o longer eligible based on patient's age to complete this topic Meningococcal B Vaccine Aged Out No l onger eligible based on patient's age to complete this topic RSV Immunization Patients Under 20 months Aged Out No longer eligible based on patient's age to complete this topic Varicella Vaccines Aged Out No longer eligible based on patient's age to complete this topic Procedures Procedure Name Priority Date/Time Associated Diagnosis Comments ECG ANNOTATED 07/08/2024 POCT GLUCOSE BLOOD Routine 07/07/2024 11 :01 AM EDT POCT GLUCOSE BLOOD Routine 07/07/2024 8: 30 AM EDT COMPLETE BLOOD COUNT Routine 07/07/2024 6:21 AM EDT BASIC METABOLIC PANEL Routine 07/07/2024 6:21 AM EDT POCT GLUCOSE BLOOD Routine 07/06/2024 9: 38 PM EDT POCT GLUCOSE BLOOD Routine 07/06/2024 4: [address] ANGIO CHEST WO AND/OR W CONTRAST STAT 07/06/2024 4:00 PM EDT Respiratory distress ECG 12-LEAD STAT 07/06/2024 3:06 PM EDT OXYGEN THERAPY, ADULT Routine 07/06/2024 3:01 PM EDT OXYGEN THERAPY, ADULT Routine 07/06/2024 3:01 PM EDT OXYGEN THERAPY, ADULT Routine 07/06/2024 2:12 PM EDT OXYGEN THERAPY, ADULT Routine 07/06/2024 2:12 PM EDT TROPONIN I HIGH SENSITIVITY STAT 07/06/2024 12:31 PM EDT BASIC METABOLIC PANEL STAT 07/06/2024 12:31 PM EDT XR CHEST 2 VIEWS STAT 07/06/2024 11:3 0 AM EDT RESPIRATORY VIRUS PANEL MOLECULAR STUDY STAT 07/06/2024 11:10 AM EDT CBC WITH AUTO DIFFERENTIAL STAT 07/06/2024 11:09 AM EDT TROPONIN I HIGH SENSITIVITY STAT 07/06/2024 11:09 AM EDT CBC AND DIFFERENTIAL STAT 07/06/2024 11:09 AM EDT ECG 12-LEAD STAT 07/06/2024 11:01 AM EDT DC CRITICAL CARE 30-74 MINUTES Routine 07/06/2024 10:46 AM EDT [facility] SCREENING DIGITAL Routine 12/10/2023 6:40 PM EDT Encounter for screening mammogram for malignant neoplasm of breast COLONOSCOPY Routine 01/15/2021 [facility] DEXA AXIAL SKELETON Routine 07/12/2018 2:13 PM EDT Asymptomatic menopausal state from Last 3 Months or Most Recently Relevant to Health Maintenance Results * ECG-Annotated (07/08/2024) us Provider Onbase MD ECG ORDERABLES Final Result * (ABNORMAL) POCT Glucose, blood (07/07/2024 11:01 AM EDT) Only the most recent of4 resultswithin the time period is included. Glucose POCT 144(H) 70 - 100 mg/dL 07/07/2024 11:02 AM EDT [facility] Blood Capillary blood specimen / Unknown 07/07/2024 11:01 AM EDT 07/07/2024 11:03 AM EDT us Sam Harrsi MD LAB POINT OF C ARE TEST DOCKED DEVICE UNSOLICITED RESULTS Final Result [facility] [address] [place] [address], [place] [phone] * (ABNORMAL) Complete blood count (07/07/2024 6:21 AM EDT) [facility] WBC 10.4 4.8 - 10.8 K/mcL LAB HEMETOLOGY METHOD 07/07/2024 7:21 AM EDT [facility] RBC 3.40(L) 3.80 - 4.80 M/mcL LAB HEMETOLOGY METHOD 07/07[facility]2024 [facility] Hemoglobin 10.2(L) 11.5 - 16.0 g/dL LAB HEMETOLOGY METHOD 07/07/2024 7:21 AM [facility] Hematocrit 32.6(L) 35.0 - 47.0 % LAB HEMETOLOGY METHOD 07/07/2024 7:[facility] MCV 95.6 79.0 - 98.0 FL LAB HEMETOLOGY METHOD 07/07/2024 7:[facility] MCH 29.9 27.0 - 32.0 pcg LAB HEMETOLOGY METHOD 07/07/2024 7:[facility] MCHC 31.3(L) 32.0 - 37.0 g/dL LAB HEMETOLOGY METHOD 07/07/2024 7:[facility] RDW 13.4 11.0 - 15.0 % LAB HEMETOLOGY METHOD 07/07/2024 7:21 AM [facility] Platelets 189 130 - 400 K/mcL LAB HEMETOLOGY METHOD 07/07/2024 7:21 AM EDT [facility] MPV 11.3(H) 7.0 - 11.0 FL LAB HEMETOLOGY METHOD 07/07/2024 7:21 AM EDT [facility] NRBC 0.0 <1.0 % [facility] 07/07/2024 7:21 AM EDT [facility] NRBC Absolute 0.00 <0.10 K/mcL LAB HEMETOLOGY METHOD 07/07/2024 7:21 AM EDT [facility] Blood Venous blood specimen / Unknown Venipuncture / Unknown 07/07/2024 6:21 AM EDT 07/07/2024 7:01 AM EDT us Alda Dutta MD LAB BLOOD ORDERABLES Final Res ult [facility] [address] [place] [address], [place] [phone] * (ABNORMAL) Basic metabolic panel (07/07/2024 6:21 AM EDT) Only the most recent of2 resultswithin the time period is included. Sodium 139 133 - 145 mmol/L LAB CHEMISTRY METHOD 07/07/2024 8:04 AM [facility] Potassium 3.5 3.5 - 5.5 mmol/L LAB CHEMISTRY METHOD 07/07/2024 8:04 AM T [facility] Chloride 107 96 - 110 mmol/L LAB CHEMISTRY METHOD 07/07/2024 8:04 AM [facility] CO2 25 21 - 32 mmol/L LAB CHEMISTRY METHOD 07/07/2024 8:04 AM [facility] Anion Gap 7 3 - 11 LAB CHEMISTRY METHOD 07/07/2024 8:04 AM [facility] Glucose 125(H) 70 - 100 mg/dL LAB CHEMISTRY METHOD 07/07/2024 8:04 AM EDT [facility] BUN 17 5 - 25 mg/dL LAB CHEMISTRY METHOD 07/07/2024 8:04 AM EDT [facility] Creatinine 0.76 0.50 - 1.10 mg/dL LAB CHEMISTRY METHOD 07/07/2024 8:[facility] eGFR 84 >=60 mL/min/1. 73m2 LAB CHEMISTRY METHOD 07/07/2024 8:04 AM EDT [facility] Comment:Calculation based on the Chronic Kidney Disease Epidemiology Collaboration (CKD-EPI) equation refit without adjustment for race. BUN/Creatinine Ratio 22.4 LAB CHEMISTRY METHOD 07/07/2024 8:04 AM [facility] Calcium 9.4 8.5 - 10.5 mg/dL LAB CHEMISTRY METHOD 07/07/2024 8:04 AM T [facility] Blood Venous blood specimen / Unknown Venipuncture / Unknown 07/07/2024 6:21 AM EDT 07/07/2024 6:59 AM EDT us Alda Dutta MD LAB BLOOD ORDERABLES Final Res ult [facility] [address] [place] [address], * CT Angio Chest wo and/or w Contrast (07/06/2024 4:00 PM EDT) Anatomical Region Laterality Modality Body Computed Tomogra phy 07/06/2024 4:12 PM EDT Impressions 07/06/2024 4:20 PM EDT No central pulmonary embolism. -------- FINAL REPORT -------- Dictated By: Irma Carrington Dictated Date: 07/06/2024 16:12 ET Assigned Physician: Irma Carrington Reviewed and Electronically Signed By: Irma Carrington Signed Date: 07/06/2024 16:20 ET Workstation ID: [id number] Transcribed By: Self Edit Transcribed Date: 07/06/2024 16:19 ET Narrative 07/06/2024 4:20 PM EDT PROCEDURE: CT ANGIO CHEST INDICATION: PE suspected, high prob COMPARISON: None. TECHNIQUE: CT pulmonary angiogram performed following uneventful IV administration of ISOVUE contrast material with bolus timing technique from the thoracic inlet through the lung bases. 3-D multiplanar reformations were obtained by the technologist on an independent workstation. GE Lightspeed VCT dose reduction utilizing iterative reconstruction. Total exam DLP 564 (mGy-cm) FINDINGS: There is no CT evidence of acute pulmonary embolism to the lobar level. Evaluation of the segmental and subsegmental pulmonary arteries is limited due to motion artifact and small peripheral pulmonary emboli cannot be excluded. The pulmonary trunk is enlarged suggesting elevated pulmonary pressures. Mild cardiomegaly. No pericardial effusion. Ascending aortic ectasia without aneurysm. There is no evidence for mediastinal or hilar lymphadenopathy. Lungs are hypoventilatory. There are no pleural effusions. The visualized portion of the upper abdomen demonstrates no acute findings however technique was not optimized for evaluation for more subtle lesions. Scapular deformities. No acute fracture. Procedure Note Irma Carrington MD - 07/06/2024 PROCEDURE: CT ANGIO CHEST INDICATION: PE suspected, high prob COMPARISON: None. TECHNIQUE: CT pulmonary angiogram performed following uneventful IVadministration of ISOVUE contrast material with bolus timing techniquefrom the thoracic inlet through the lung bases. 3-D multiplanar reformations were obtained by the technologist on anindependent workstation. GE Lightspeed VCT dose reduction utilizing iterative reconstruction. Total exam DLP 564 (mGy-cm) FINDINGS: There is no CT evidence of acute pulmonary embolism to the lobar level.Evaluation of the segmental and subsegmental pulmonary arteries is limiteddue to motion artifact and small peripheral pulmonary emboli cannot beexcluded. The pulmonary trunk is enlarged suggesting elevated pulmonarypressures. Mild cardiomegaly. No pericardial effusion. Ascending aortic ectasiawithout aneurysm. There is no evidence for mediastinal or hilar lymphadenopathy. Lungs are hypoventilatory. There are no pleural effusions. The visualized portion of the upper abdomen demonstrates no acute findingshowever technique was not optimized for evaluation for more subtlelesions. Scapular deformities. No acute fracture. IMPRESSION: No central pulmonary embolism. -------- FINAL REPORT -------- Dictated By: Irma Carrington Dictated Date: 07/06/2024 16:12 ET Assigned Physician: Irma Carrington Reviewed and Electronically Signed By: Irma Carrington Signed Date: 07/06/2024 16:20 ET Workstation ID: [id number] Transcribed By: Self Edit Transcribed Date: 07/06/2024 16:19 ET us Noah Vernon MD IMG CT PROCEDURES Final Result * ECG 12 lead (07/06/2024 3:06 PM EDT) Only the most recent of2 resultswithin the time period is included. Pathologist [facility] Ventricular Rate ECG 92 BPM GEMUSE Atrial Rate 92 BPM GEMUSE P-R Interval 144 ms GEMUSE QRS Duration 96 ms GEMUSE Q-T Interval 398 ms GEMUSE QTc 492 ms GEMUSE P Wave [place] 65 degrees GEMUSE R [place] -24 degrees GEMUSE T [place] 67 degrees GEMUSE ECG Interpretation Sinus rhythm with Premature atrial complexes Nonspecific ST and T wave abnormality Abnormal ECG When compared with ECG of 06-JUL-2024 11:01, (unconfirmed) Premature atrial complexes are now Present T wave inversion more evident in Lateral leads Confirmed by Concepcion MENENDEZ JOHN ([id number]) on 07/07/2024 7:06:35 PM GEMUSE 07/06/2024 3:06 PM EDT 07/07/2024 7:06 PM EDT us Noah Vernon MD ECG ORDERABLES Final Result GEMUSE * Troponin I high sensitivity (07/06/2024 12:31 PM EDT) Only the most recent of2 resultswithin the time period is included. Pathologist [facility] High Sensitivity Troponin I 10 <=54 ng/L LAB CHEMISTRY METHOD 07/06/2024 1:12 PM EDT [facility] Blood Venous blood specimen / Unknown Venipuncture / Unknown 07/06/2024 12:31 PM EDT 07/06/2024 12:36 PM EDT [facility]ative [facility] - 07/06/2024 1:12 PM EDT High levels of biotin in samples may falsely decrease hsTroponin values. Use caution when interpreting hsTroponin results in patients taking biotin who exhibit renal impairment (eGFR <60) or in patients taking more than 20 mg/day of biotin. us Noah Vernon MD LAB BLOOD ORDERABLES Final Resu lt [facility]) [facility] [address] [place] [address], * XR Chest 2 Views (07/06/2024 11:30 AM EDT) Anatomical Region Laterality Modality Body Radiographic Luli ging 07/06/2024 11:3 3 AM EDT Impressions 07/06/2024 11:35 AM EDT Impression: 1. Stable cardiomegaly. 2. No active pulmonary process. Telerad BRANDI ([id number]) -------- FINAL REPORT -------- Dictated By: Vilma Rowe Dictated Date: 07/06/2024 11:33 ET Assigned Physician: iVlma Rowe Reviewed and Electronically Signed By: Vilma Rowe Signed Date: 07/06/2024 11:35 ET Workstation ID: [id number] Transcribed By: Self Edit Transcribed Date: 07/06/2024 11:33 ET Narrative 07/06/2024 11:35 AM EDT History: Dyspnea. Comparison: 06/07/24, 06/03/23 Findings: PA and lateral views. The cardiac silhouette remains mildly enlarged. Atherosclerotic calcification and tortuosity of the thoracic aorta are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
[2024-09-14 12:08] LABS: Cholesterol 148 mg/dL (<200); HDL Cholesterol 64 mg/dL (>40); Triglycerides 163 mg/dL (<150)
== END 2024-09-14 09:00 | disposition home or self-care (01) ==
LOC: HO.HHCL 08:59
PROVIDERS: PCP Internal Medicine; Visit Provider Internal Medicine
DX: E78.2 Mixed hyperlipidemia (principal)
CPT/HCPCS: 36415; 80061